=== PATIENT | male | born 1955 | race African-American/Black ===

== ENCOUNTER 2016-11-22 01:21 | Emergency (ER) | payer SELFPAY ==
[2016-11-22 01:49] VITALS: BP 136/82; PULSE 99; TEMP 98; BMI 40.8
--- NOTE | 2016-11-22 02:46 | PDOC ---
History of Present Illness - General Chief Complaint: Shortness of Breath Stated Complaint: DIFFICULTY BREATHING Time Seen by Provider: 11/22/16 01:41 - History of Present Illness Initial Comments: 11/22/16 02:10 CHIEF COMPLAINT: sob HISTORY OF PRESENT ILLNESS: 61 yo M with no known PMH presents to ED with intermittent episodes of shortness of breath and "raspiness in the throat" x 1 year. Patient reports that his episodes of discomfort begin with "raspiness in the neck/throat" and then progress to a feeling of choking sensation and difficulty breathing. Patient states "I don't know if I have an allergy to something and then my throat swells up or something." Patient denies fever, chills, nausea, vomiting, diarrhea. Patient reports that at this time he has no symptoms and that his shortness of breath has resolved. PAST MEDICAL HISTORY: Denies past medical history (no PCP) FAMILY HISTORY: Denies SOCIAL HISTORY: Denies tobacco, alcohol, illicit drug use. SURGICAL HISTORY: Denies ALLERGIES: No known drug allergies REVIEW OF SYSTEMS General/Constitutional: Denies fever or chills. Denies weakness, weight change. HEENT: Denies change in vision. Denies ear pain or discharge. Denies sore throat. Cardiovascular: Denies chest pain or shortness of breath. Respiratory: Denies cough, wheezing, or hemoptysis. Gastrointestinal: Denies nausea, vomiting, diarrhea or constipation. Denies rectal bleeding. Genitourinary: Denies dysuria, frequency, or change in urination. Musculoskeletal: Denies joint or muscle swelling or pain. Denies neck or back pain. Skin and breasts: Denies rash or easy bruising. Neurologic: Denies headache, vertigo, loss of consciousness, or loss of sensation. PHYSICAL EXAM General Appearance: Well-appearing, appropriately dressed. No apparent distress. HEENT: EOMI, PERRLA, normal ENT inspection, normal voice, TMs normal, pharynx normal. No conjunctival pallor. No photophobia, scleral icterus. Neck: Supple. Trachea midline. No tenderness, rigidity, carotid bruit, stridor , lymphadenopathy, or thyromegaly. Respiratory/Chest: Lungs CTAB. No shortness of breath, chest tenderness, respiratory distress, accessory muscle use. No crackles, rales, rhonchi, stridor , wheezing, dullness Cardiovascular: RRR. S1, S2. No JVD, murmur, bradycardia, tachycardia. Vascular Pulses: Dorsalis-Pedis (R): 2+, Dorsalis-Pedis (L): 2+ Gastrointestinal/Abdominal: Normal bowel sounds. Abdomen soft, non-distended. No tenderness or rebound tenderness. No organomegaly, pulsatile mass, guarding , hernia, hepatomegaly, splenomegaly. Lymphatic: No adenopathy, tenderness. Musculoskeletal/Extremities: Normal inspection. FROM of all extremities, normal capillary refill. Pelvis Stable. No CVA tenderness. No tenderness to extremities, pedal edema, swelling, erythema or deformity. Integumentary: Appropriate color, dry, warm. No cyanosis, erythema, jaundice or rash Neurologic: warehouse director II-XII intact. Fully oriented, alert. Appropriate mood/affect. Motor strength 5/5. No appreciable EOM palsy, facial droop or sensory deficit. 11/22/16 03:42 11/22/16 03:43 Past History - Past Medical History Allergies/Adverse Reactions: Allergies Allergy/AdvReac Type Severity Reaction Status Date / Time No Known Allergies Allergy Verified 11/22/16 01:47 Home Medications: Ambulatory Orders Epinephrine [Epipen 2-Manoj] 0.3 mg IJ ASDIR #1 kit 11/22/16 - Psycho/Social/Smoking Cessation Hx Suicidal Ideation: No Smoking Status: No Smoking History: Never smoked Have you smoked in the past 12 months: No Number of Cigarettes Smoked Daily: 0 Information on smoking cessation initiated: No Hx Alcohol Use: No Drug/Substance Use Hx: No *Physical Exam - Vital Signs Last Vital Signs Temp Pulse Resp BP Pulse Ox 98.0 F 99 H 16 136/82 96 11/22/16 01:47 11/22/16 01:47 11/22/16 01:47 11/22/16 01:47 11/22/16 01:47 ED Treatment Course - RADIOLOGY Radiology Studies Ordered: Category Date Time Status SOFT TISSUE NECK CT W/O CONTR [CT] Stat CT Scan 11/22/16 02:08 Ordered CHEST PA & LAT [RAD] Stat Radiology 11/22/16 02:07 Ordered Medical Decision Making - Medical Decision Making 11/22/16 03:45 61 yo M with no known PMH presents to ED with intermittent episodes of shortness of breath and "raspiness in the throat" x 1 year. On arrival VS remarkable for HR 99, however on manual exam, patient HR was 69. -soft tissue neck -CXR Imaging negative. Patient continues to be asymptomatic at this time. Advised patient to f/u with ENT for endoscopy. Advised patient of signs and symptoms for return to ER; patient verbalized understanding and agrees to plan. 11/22/16 03:47 *DC/Admit/Observation/Transfer Diagnosis at time of Disposition: Throat tightness - Discharge Dispostion Disposition: HOME Condition at time of disposition: Stable Admit: No - Prescriptions Prescriptions: Epinephrine [Epipen 2-Manoj] 0.3 mg IJ ASDIR #1 kit - Referrals Referrals: Lalo Lorenz MD [Staff Physician] - Kathy Camilo MD [Staff Physician] - - Patient Instructions Printed Discharge Instructions: DI for Shortness of Breath Additional Instructions: As discussed, you must follow up with ENT this week for a possible scope of your throat for further evaluation. You may also follow up with an air brake adjuster for further evaluation of possible allergy triggers. If you experience swelling of your throat, tongue, mouth, or lips that cause you difficulty breathing, please use the Epipen and return to the ER.
== END 2016-11-22 04:00 | disposition home or self-care (01) ==
LOC: JER 01:21
DX: J39.2 Other diseases of pharynx (principal)
CPT/HCPCS: 70490-TC; 71020-TC; 99281-25

== ENCOUNTER 2018-04-04 12:31 | Inpatient (IN) | payer OTHER ==
--- NOTE | 2018-04-04 13:41 | PDOC ---
Attending Attestation - HPI HPI: 04/04/18 14:33 The patient is a 63 year old male, with no significant past medical history, who presents to the emergency department with worsening nonradiating right sided chest pain. The patient reports that he always has chest pain at baseline but his chest pain worsened 3 hours prior to presentation, prompting him to come to the emergency department for evaluation. The patient states that his chest pain is worse with inspiration and with all movements. He denies any fever , chills, shortness of breath, palpitations, nausea, vomiting or any numbness/ tingling/weakness. Allergies: None reported. Past Surgical History: None reported. Social History: Non-smoker. Denies alcohol or drug use. - Physicial Exam PE: 04/04/18 14:34 GENERAL: The patient is in no acute distress. HEAD: Normal with no signs of trauma. EYES: PERRLA, EOMI, sclera anicteric, conjunctiva clear. ENT: Ears normal, nares patent, oropharynx clear without exudates. Moist mucous membranes. NECK: Normal range of motion, supple without lymphadenopathy, JVD, or masses. LUNGS: Breath sounds equal, clear to auscultation bilaterally. No wheezes, no crackles. HEART: Regular rate and rhythm, normal S1 and S2 without murmur, rub or gallop. CHEST: No reproducible chest pain to palpation. ABDOMEN: Soft, nontender, normoactive bowel sounds. No guarding, no rebound. No masses palpable. EXTREMITIES: Normal range of motion, no edema. No clubbing or cyanosis. No erythema, or tenderness. NEUROLOGICAL: Cranial nerves II through XII grossly intact. Normal speech. No focal neurological deficits. MUSCULOSKELETAL: Back nontender to palpation. No CVA tenderness. SKIN: Warm, dry, normal turgor, no rashes or lesions noted. Documentation prepared by Tiffany Molina, acting as medical receptionist for Autumn Keyes MD. <Tiffany Wallace - Last Filed: 04/04/18 14:34> - Resident Resident Name: Cecilio Cain - ED Attending Attestation I have performed the following: I have examined & evaluated the patient, The case was reviewed & discussed with the resident, I agree w/resident's findings & plan, Exceptions are as noted - Medical Decision Making 04/04/18 13:41 EKG - Twelve-lead EKG was performed and reviewed by me. There is normal sinus rhythm with a normal rate of 70 bpm. The axis is normal. The intervals are normal. There are no ST or T wave abnormalities. Impression: Normal twelve-lead EKG 04/04/18 15:01 Mr Nguyen has chronic right chest pain He presents today because his pain worsened Not associated with shortness of breath Pt has not taken any medications for this pain NO cough No fevers or chills No rash Pain not worsened with palpation CXR - No effusions, cardiomediastinal silhouette nml 04/05/18 10:34 Laboratory Tests 04/04/18 04/04/18 04/04/18 14:30 14:30 14:30 WBC 10.4 H Hgb 14.2 Hct 40.9 Plt Count 273 D INR 1.08 BUN 10 Creatinine 1.1 Creatine Kinase 225 Creatine Kinase Index 3.3 CK-MB (CK-2) 7.5 H Troponin I 0.59 H Pt currently chest pain free Aspirin ordered Call to cards Recommends standard NSTEMI treatment Trop repeated 04/05/18 10:38 Laboratory Tests 04/04/18 15:48 Creatine Kinase 238 Troponin I 1.03 H* Reviewed again with Cards Recommends heparin and admission Case reviewed with hospitalist Recommends also doing CTA (r/o PE) Clinical impression: NSTEMI, initial presentation <Autumn Keyes - Last Filed: 04/05/18 10:39>
[2018-04-04] MEDS ORDERED: ASPIRIN 81 MG CHEWABLE TABLETS PO ONE (13:46)
[2018-04-04] MEDS ORDERED: ASPIRIN 81 MG CHEWABLE TABLETS ONE (14:39)
[2018-04-04 14:53] LABS: INR 1.08 (0.83-1.09); PROTHROMBIN TIME (PATIENT) 12.7 SEC (9.7-13.0)
[2018-04-04 15:12] LABS: BASO % 0.3 % (0-2.0); HEMATOCRIT 40.9 % (35.4-49); HEMOGLOBIN 14.2 GM/dL (11.7-16.9); LYMPH % 18.9 % (8-40); MCH 28.9 pg (25.7-33.7); MCHC 34.7 g/dl (32.0-35.9); MEAN CELL VOLUME 83.3 fl (80-96); MONO % 4.9 % (3.8-10.2); NEUT % 74.9 % (42.8-82.8); PLATELET COUNT 273 K/MM3 (134-434); RBC 4.91 M/mm3 (4.00-5.60); RDW 13.1 % (11.9-15.9); WHITE BLOOD COUNT 10.4 K/mm3 (4.0-10.0)
[2018-04-04 15:17] LABS: ALBUMIN 3.6 g/dl (3.4-5.0); ALK PHOS 93 U/L (45-117); ANION GAP 6 MMOL/L (8-16); BILIRUBIN,TOTAL 0.3 mg/dL (0.2-1); BLOOD UREA NITROGEN 10 mg/dL (7-18); CALCIUM 8.9 mg/dL (8.5-10.1); CHLORIDE 103 mmol/L (98-107); CO2 29 mmol/L (21-32); CREATININE 1.1 mg/dL (0.55-1.3); GLUCOSE,RANDOM 110 mg/dL (74-106); MAGNESIUM 2.1 mg/dL (1.8-2.4); POTASSIUM 4.1 mmol/L (3.5-5.1); SGOT/AST 19 U/L (15-37); SGPT/ALT 23 U/L (13-61); SODIUM 138 mmol/L (136-145); TOT PROT 7.3 g/dl (6.4-8.2)
--- NOTE | 2018-04-04 15:21 | PDOC ---
History of Present Illness - General Chief Complaint: Chest Pain Stated Complaint: Chest Pain Time Seen by Provider: 04/04/18 13:14 History Source: Patient Exam Limitations: No Limitations - History of Present Illness Initial Comments: 04/04/18 15:16 Patient is a 63M with history of distant tobacco abuse here today complaining of chest pain. He states that he has chest pain in the right side of his chest all the time but it got worse 3 hours prior to arrival. Patient states his chest pain gets worse with inspiration, moving his right arm and palpation. Denies fevers, chills, nausea, vomiting. Denies cough and shortness of breath. Denies leg swelling, recent travel, prior blood clots. Has no PCP. Has seen safety engineer pressure vessels in the past and told that she was fine. Past History - Past Medical History Allergies/Adverse Reactions: Allergies Allergy/AdvReac Type Severity Reaction Status Date / Time No Known Allergies Allergy Verified 04/04/18 12:38 Home Medications: Ambulatory Orders Epinephrine [Epipen 2-Manoj] 0.3 mg IJ ASDIR #1 kit 11/22/16 COPD: No CHF: No - Suicide/Smoking/Psychosocial Hx Smoking Status: No Smoking History: Unknown if ever smoked Have you smoked in the past 12 months: No Number of Cigarettes Smoked Daily: 0 Information on smoking cessation initiated: No Hx Alcohol Use: No Drug/Substance Use Hx: No Review of Systems - Review of Systems Comments:: 04/04/18 15:18 GENERAL/CONSTITUTIONAL: No fever or chills. No weakness. HEAD, EYES, EARS, NOSE AND THROAT: No change in vision. No sore throat. CARDIOVASCULAR: +chest pain no shortness of breath RESPIRATORY: No cough, wheezing, or hemoptysis. GASTROINTESTINAL: No nausea, vomiting, diarrhea or constipation. GENITOURINARY: No dysuria, frequency, or change in urination. MUSCULOSKELETAL: No joint or muscle swelling or pain. No neck or back pain. SKIN: No rash NEUROLOGIC: No headache, vertigo, loss of consciousness, or change in strength/ sensation. ENDOCRINE: No increased thirst. No abnormal weight change HEMATOLOGIC/LYMPHATIC: No anemia, easy bleeding, or history of blood clots. ALLERGIC/IMMUNOLOGIC: No hives or skin allergy. *Physical Exam - Vital Signs Last Vital Signs Temp Pulse Resp BP Pulse Ox 99.4 F 77 18 155/81 100 04/04/18 12:31 04/04/18 12:31 04/04/18 12:31 04/04/18 12:31 04/04/18 12:31 - Physical Exam Comments: 04/04/18 15:18 GENERAL: Awake, alert, and fully oriented, in no acute distress HEAD: No signs of trauma, normocephalic, atraumatic EYES: PERRLA, EOMI, sclera anicteric, conjunctiva clear ENT: Auricles normal inspection, hearing grossly normal, nares patent, oropharynx clear without exudates. Moist mucosa NECK: Normal ROM, supple, no lymphadenopathy, JVD, or masses LUNGS: No distress, speaks full sentences, clear to auscultation bilaterally HEART: Regular rate and rhythm, normal S1 and S2, no murmurs, rubs or gallops, peripheral pulses normal and equal bilaterally. Reproduced pain with palpation ABDOMEN: Soft, nontender, normoactive bowel sounds. No guarding, no rebound. No masses EXTREMITIES: Normal inspection, Normal range of motion, no edema. No clubbing or cyanosis. NEUROLOGICAL: Cranial nerves II through XII grossly intact. Normal speech, normal gait, no focal sensorimotor deficits SKIN: Warm, Dry, normal turgor, no rashes or lesions noted. Moderate Sedation - Procedure Monitoring Vital Signs: Procedure Monitoring Vital Signs Temperature 99.4 F 04/04/18 12:31 Pulse Rate 77 04/04/18 12:31 Respiratory Rate 18 04/04/18 12:31 Blood Pressure 155/81 04/04/18 12:31 O2 Sat by Pulse Oximetry (%) 100 04/04/18 12:31 ED Treatment Course - LABORATORY CBC & Chemistry Diagram: 04/04/18 14:30 04/04/18 14:30 - ADDITIONAL ORDERS Additional order review: Laboratory Results 04/04/18 14:30 PT with INR 12.70 INR 1.08 - RADIOLOGY Radiology Studies Ordered: Category Date Time Status CHEST PA & LAT [RAD] Stat Radiology 04/04/18 13:46 Taken - Medications Given in the ED: ED Medications Discontinued Medications Generic Name Dose Route Start Last Admin Trade Name Freq PRN Reason Stop Dose Admin Aspirin 162 mg 04/04/18 13:46 04/04/18 14:46 Asa - PO 04/04/18 13:47 162 mg ONCE ONE Administration Medical Decision Making - Medical Decision Making 04/04/18 15:18 Patient is 63M with history of tobacco use here today with chest pain. Vitals normal and stable. Chest pain story very atypical. DDx includes, but is not limited to: msk pain, acs, arrhythmia. Do not suspect pe given history and exam. Give aspirin. EKG shows normal sinus rhythm with rate of 70. No st elevations/depressions. Normal axis. Normal intervals. No significant t wave abnormalities. Trop positive to 0.59. CXR clear, other labs unremarkable. Will admit for ACS. 04/04/18 15:25 Patient re-evaluated after increased troponin found. Pain increasing again, will give nitro SL and repeat EKG. PE again re-considered, but still do not believe likely given patient is active at baseline, no leg swelling, no tachycardia, no hypoxia. 04/04/18 15:37 Repeat EKG shows normal sinus rhythm with rate of 85. R wave progression poorer now in V2, V3. Flattened t waves in V2-V6. No st elevations/depressions. Cardiology paged. 04/04/18 17:59 Initial cardiology consult with Dr Villatoro. Waiting to heparinize until second trop done. Second trop positive to 1.03 1 hour 18 minutes after initial troponin. Cardiology paged again, Dr Perez responding. Requesting third EKG. Will dispo transfer for cath vs tele admission per cardiology request. Holding heparin at this time. 04/04/18 18:43 Third EKG shows normal sinus rhythm with normal appearing t waves. No st elevations/depressions. Case discussed further with Dr Perez. POCUS echo done. No effusion noted. No obvious wall motion abnormality noted. Normal sized RV. LVH. Will do CTA chest to rule out PE. Case discussed with Dr Freeman, still pending final transfer vs admit call per cardiology. Patient reassessed, pain is still there, pain improved. CTA ordered. Morphine ordered. 04/04/18 19:[address] Mendez. *DC/Admit/Observation/Transfer Diagnosis at time of Disposition: Chest pain - Discharge Dispostion Condition at time of disposition: Stable Decision to Admit order: Yes - Referrals - Patient Instructions - Post Discharge Activity
[2018-04-04] MEDS ORDERED: NITROGLYCERIN SUBLINGUAL 1/150 0.4 MG TAB SL ONE (15:39)
[2018-04-04] MEDS ORDERED: NITROGLYCERIN SUBLINGUAL 1/150 0.4 MG TAB ONE (15:45)
--- NOTE | 2018-04-04 16:56 | EKG ---
Test Reason : Blood Pressure : / mmHG Vent. Rate : 070 BPM Atrial Rate : 070 BPM P-R Int : 194 ms QRS Dur : 086 ms QT Int : 374 ms P-R-T Axes : 056 020 050 degrees QTc Int : 403 ms NORMAL SINUS RHYTHM WITH SINUS ARRHYTHMIA NORMAL ECG WHEN COMPARED WITH ECG OF 18-FEB-2017 18:42, NON-SPECIFIC CHANGE IN ST SEGMENT IN LATERAL LEADS Confirmed by PATRICK READ, MAGO ([id number]) on 04/04/2018 4:56:35 PM Referred By: Confirmed By:MAGO NGUYEN MD
[2018-04-04] MEDS ORDERED: morphine CARPU-JECT 4 MG/1 ML DISP.SYRIN IVPUSH ONE (18:42)
[2018-04-04] MEDS ORDERED: morphine SULFATE 4 MG/ML VIAL ONE (19:04)
[2018-04-04] MEDS ORDERED: HEPARIN INFUSION - 25,000 UNITS/500 ML INFUS.BAG IVPB ONE (21:08)
--- NOTE | 2018-04-04 21:36 | PDOC ---
*Physical Exam - Vital Signs Last Vital Signs Temp Pulse Resp BP Pulse Ox 99.4 F 77 20 138/66 98 04/04/18 12:31 04/04/18 16:57 04/04/18 16:57 04/04/18 16:57 04/04/18 16:57 ED Treatment Course - LABORATORY CBC & Chemistry Diagram: 04/04/18 14:30 04/04/18 14:30 - ADDITIONAL ORDERS Additional order review: Laboratory Results 04/04/18 04/04/18 04/04/18 15:48 15:48 14:30 PT with INR INR Sodium 138 Potassium 4.1 Chloride 103 Carbon Dioxide 29 Anion Gap 6 L BUN 10 Creatinine 1.1 Creat Clearance w eGFR > 60 Random Glucose 110 H Calcium 8.9 Magnesium 2.1 Total Bilirubin 0.3 AST 19 ALT 23 Alkaline Phosphatase 93 Creatine Kinase 238 225 Creatine Kinase Index Cancelled Cancelled 3.3 CK-MB (CK-2) Cancelled Cancelled 7.5 H Troponin I 1.03 H* 0.59 H Total Protein 7.3 Albumin 3.6 04/04/18 14:30 PT with INR 12.70 INR 1.08 Sodium Potassium Chloride Carbon Dioxide Anion Gap BUN Creatinine Creat Clearance w eGFR Random Glucose Calcium Magnesium Total Bilirubin AST ALT Alkaline Phosphatase Creatine Kinase Creatine Kinase Index CK-MB (CK-2) Troponin I Total Protein Albumin 04/04/18 14:30 RBC 4.91 MCV 83.3 MCHC 34.7 RDW 13.1 MPV 8.0 Neutrophils % 74.9 Lymphocytes % 18.9 Monocytes % 4.9 Eosinophils % 1.0 Basophils % 0.3 - Medications Given in the ED: ED Medications Discontinued Medications Generic Name Dose Route Start Last Admin Trade Name Freq PRN Reason Stop Dose Admin Aspirin 162 mg 04/04/18 13:46 04/04/18 14:46 Asa - PO 04/04/18 13:47 162 mg ONCE ONE Administration Morphine Sulfate 4 mg 04/04/18 18:42 04/04/18 19:11 Morphine Injection - IVPUSH 04/04/18 18:43 4 mg ONCE ONE Administration Nitroglycerin 0.4 mg 04/04/18 15:39 04/04/18 15:48 Nitrostat - SL 04/04/18 15:40 0.4 mg ONCE ONE Administration Medical Decision Making - Medical Decision Making Patient signed out from Dr. Cain. 63yo M with H of obesity presenting with chest pain. Patient with elevated Tpn. Reports lessened chest pain after receiving morphine, now rated 3/10. Admitted to hospitalist group. CTA negative for PE. Phone call at 8:20pm: Spoke with Dr. Perez, cardiology, who recommended Heparin drip, repeat Tpn, and order for ECHO to be performed in the morning. Repeat Tpn elevated at 2.42 (up from 1.03 at 3:48pm and 0.59 at 2:30pm). Repeat EKG ordered. EKG @ 22:12: rate 80, QTc 396, NSR, inverted t waves in V3-V5 Patient reports 1/[address] Perez updated at 10pm. 04/04/18 23:54 *DC/Admit/Observation/Transfer Diagnosis at time of Disposition: Chest pain - Discharge Dispostion Condition at time of disposition: Stable - Referrals - Patient Instructions - Post Discharge Activity
[2018-04-04] MEDS: HEPARIN INFUSION - 25,000 UNITS/500 ML INFUS.BAG IVPB SCH (21:47)
[2018-04-05] MEDS ORDERED: HEPARIN NA (PORCINE) 5,000 UNITS/ML 1ML VIAL ONE (06:02)
[2018-04-05] MEDS ORDERED: HEPARIN NA (PORCINE) 5,000 UNITS/ML 1ML VIAL IVPUSH PRN ×2 (06:02)
[2018-04-05] MEDS ORDERED: HEPARIN INFUSION - 25,000 UNITS/500 ML INFUS.BAG IVPB SCH (06:15)
--- NOTE | 2018-04-05 08:41 | HP ---
CHIEF COMPLAINT: R sided chest pain PCP: none HISTORY OF PRESENT ILLNESS: 63 y/o with no significant PMH who presents to the ED c/o new onset R sided chest pain. As per pt, at noon yesterday (04/04), he developed sudden onset R sided chest pain. Pain was an 8/10 initially, sharp and a/w deep breathing. With no alleviating fx. Did not try any therapies at home such as asa. An hour later, pt's chest pain became unbearable, thus he came to the ED for further evaluation. During this time, he had one episode of NBNB emesis and diaphoresis. States that he does not follow with a materials manager and has never had a stress test or ECHO done before. No recent long travel. Denies GUAJARDO, fever, chills, or changes in urinary or bowel function. Family hx + for mother with weak heart. Passed in her 70's. ER course was notable for: (1) asa 162 x1 (2) hep gtt (3) morphine 4mg, NG 0.4mg SL Recent Travel: denies PAST MEDICAL HISTORY: none PAST SURGICAL HISTORY: none Social History: currently does not work; used to work as a mental health worker Smoking: quit 23 yrs ago; had smoked from ages [age] 1ppd Alcohol: denies Drugs: denies Family History: mother with weak heart. Passed in her 70's. no other fam hx . Allergies No Known Allergies Allergy (Verified 04/04/18 12:38) HOME MEDICATIONS: Home Medications Medication Instructions Recorded Epinephrine [Epipen 2-Manoj] 0.3 mg IJ ASDIR #1 kit 11/22/16 REVIEW OF SYSTEMS CONSTITUTIONAL: Absent: fever, chills, diaphoresis, generalized weakness, malaise, loss of appetite, weight change HEENT: Absent: rhinorrhea, nasal congestion, throat pain, throat swelling, difficulty swallowing, mouth swelling, ear pain, eye pain, visual changes CARDIOVASCULAR: +chest pain, diaphoresis Absent: chest pain, syncope, palpitations, irregular heart rate, lightheadedness , peripheral edema RESPIRATORY: Absent: cough, shortness of breath, dyspnea with exertion, orthopnea, wheezing, stridor, hemoptysis GASTROINTESTINAL: +nausea Absent: abdominal pain, abdominal distension, nausea, vomiting, diarrhea, constipation, melena, hematochezia GENITOURINARY: Absent: dysuria, frequency, urgency, hesitancy, hematuria, flank pain, genital pain MUSCULOSKELETAL: Absent: myalgia, arthralgia, joint swelling, back pain, neck pain SKIN: Absent: rash, itching, pallor HEMATOLOGIC/IMMUNOLOGIC: Absent: easy bleeding, easy bruising, lymphadenopathy, frequent infections ENDOCRINE: Absent: unexplained weight gain, unexplained weight loss, heat intolerance, cold intolerance NEUROLOGIC: Absent: headache, focal weakness or paresthesias, dizziness, unsteady gait, seizure, mental status changes, bladder or bowel incontinence PSYCHIATRIC: Absent: anxiety, depression, suicidal or homicidal ideation, hallucinations. PHYSICAL EXAMINATION Vital Signs 04/04/18 04/05/18 04/05/18 23:00 05:17 07:00 Temperature 98.1 F Pulse Rate Pulse Rate [ 91 H 63 Apical] Respiratory 18 17 Rate Blood Pressure Blood Pressure 136/81 149/91 136/72 [Left Arm] O2 Sat by Pulse 100 95 Oximetry (%) GENERAL: Pleasant. resting in bed. awake, alert, and fully oriented, in no acute distress. HEAD: Normal with no signs of trauma. EYES: Pupils equal, round and reactive to light, extraocular movements intact, sclera anicteric, conjunctiva clear. EARS, NOSE, THROAT: Ears normal, nares patent, oropharynx clear without exudates. Moist mucous membranes. NECK: Normal range of motion, supple CHEST: without reproducible chest pain LUNGS: Breath sounds equal, clear to auscultation bilaterally. No wheezes, and no crackles. No accessory muscle use. HEART: Regular rate and rhythm, normal S1 and S2 without murmur, rub or gallop. ABDOMEN: Soft, obese, nontender, not distended, normoactive bowel sounds LOWER EXTREMITIES: 2+ pt pulses, warm, well-perfused. No calf tenderness. No peripheral edema. NEUROLOGICAL: Cranial nerves II-XII intact. PSYCHIATRIC: Cooperative. SKIN: Warm, dry Laboratory Results - last 24 hr 04/04/18 04/04/18 04/04/18 14:30 14:30 14:30 WBC 10.4 H RBC 4.91 Hgb 14.2 Hct 40.9 MCV 83.3 MCH 28.9 MCHC 34.7 RDW 13.1 Plt Count 273 D MPV 8.0 Absolute Neuts (auto) 7.8 Neutrophils % 74.9 Lymphocytes % 18.9 Monocytes % 4.9 Eosinophils % 1.0 Basophils % 0.3 Nucleated RBC % 0 PT with INR 12.70 INR 1.08 PTT (Actin FS) Sodium 138 Potassium 4.1 Chloride 103 Carbon Dioxide 29 Anion Gap 6 L BUN 10 Creatinine 1.1 Creat Clearance w eGFR > 60 Random Glucose 110 H Calcium 8.9 Magnesium 2.1 Total Bilirubin 0.3 AST 19 ALT 23 Alkaline Phosphatase 93 Creatine Kinase 225 Creatine Kinase Index 3.3 CK-MB (CK-2) 7.5 H Troponin I 0.59 H Total Protein 7.3 Albumin 3.6 Trop trend 04/04/18 04/04/18 04/04/18 14:30 15:48 20:30 Troponin I 0.59 H 1.03 H* 2.42 H* 04/04/18 04/05/18 14:30 08:40 Troponin I 0.59 H 2.88 H* EKG: initially NSR, later with flattened T waves V2, V6, later w/ inverted t waves v3-v5 on sequential EKGs ASSESSMENT/PLAN: 63 y/o with no significant PMH who presents to the ED c/o new onset R sided chest pain. #Chest pain, NSTEMI -with developing inverted T waves after flattening, new changes. YESSICA score 2-3 -s/p asa 162mg in ED. continue 81mg qd -started on high dose statin: lipitor 80mg qd -d/w cardio; will load plavix 300mg x1, 75mg qd starting today. do not need to start BB now -for cath this . pt talking to family -hep gtt; follow PTT -f/u ECHO -NG, morphine if chest pain recurs -keep Mg>2, K>4 -cont to trend trops. 0.59>1.03> 2.42>2.88 -tele monitoring, serial EKGs #F/E/N no IVF indicated at this time continue to follow lytes; especially K, Mg cholesterol/fat controlled diet #PPX hep gtt #Dispo tele monitoring for cath this weekend as per cardio Visit type - Emergency Visit Emergency Visit: Yes ED Registration Date: 04/04/18 Care time: The patient presented to the Emergency Department on the above date and was hospitalized for further evaluation of their emergent condition. - New Patient This patient is new to me today: Yes Date on this admission: 04/05/18 - Critical Care Critical Care patient: No
[2018-04-05 09:04] LABS: BASO % 0.3 % (0-2.0); HEMATOCRIT 41.9 % (35.4-49); HEMOGLOBIN 14.2 GM/dL (11.7-16.9); LYMPH % 25.3 % (8-40); MCH 28.4 pg (25.7-33.7); MEAN CELL VOLUME 83.6 fl (80-96); MEAN PLT VOLUME 7.7 fl (7.5-11.1); MONO % 6.9 % (3.8-10.2); NEUT % 65.5 % (42.8-82.8); PLATELET COUNT 277 K/MM3 (134-434); RBC 5.01 M/mm3 (4.00-5.60); RDW 13.2 % (11.9-15.9); WHITE BLOOD COUNT 9.5 K/mm3 (4.0-10.0)
[2018-04-05 09:15] LABS: INR 1.08 (0.83-1.09); PROTHROMBIN TIME (PATIENT) 12.7 SEC (9.7-13.0)
[2018-04-05 09:18] LABS: ACTIVATED PTT 58.7 SECONDS (25.2-36.5)
[2018-04-05 09:43] LABS: ANION GAP 9 MMOL/L (8-16); BLOOD UREA NITROGEN 11 mg/dL (7-18); CALCIUM 8.9 mg/dL (8.5-10.1); CHLORIDE 103 mmol/L (98-107); CHOLESTEROL 261 mg/dL (50-200); CO2 27 mmol/L (21-32); CREATININE 1.1 mg/dL (0.55-1.3); GLUCOSE,RANDOM 117 mg/dL (74-106); HDL CHOLESTEROL 36 mg/dL (40-60); POTASSIUM 3.6 mmol/L (3.5-5.1); SODIUM 139 mmol/L (136-145); TRIGLYCERIDES 212 mg/dL (0-150)
[2018-04-05] MEDS ORDERED: ATORVASTATIN CA 80 MG TABLET (FP) ONE (10:14)
[2018-04-05] MEDS ORDERED: CLOPIDOGREL BISULFATE 300 MG TABLET ONE (10:14)
[2018-04-05] MEDS ORDERED: CLOPIDOGREL BISULFATE 300 MG TABLET PO ONE (10:15)
[2018-04-05] MEDS: ATORVASTATIN CA 80 MG TABLET (FP) PO SCH (10:16)
--- NOTE | 2018-04-05 11:17 | ECHO ---
Name: LUCA ZHONG Exam:Adult Echocardiogram Study Date: 04/05/2018 10:29 AM Age: 63 yrs Reason For Study: NSTEMI Height: 73 in Weight: 400 lb BSA: 2.9 m2 MMode/2D Measurements & Calculations IVSd: 1.0 cm Ao root diam: 2.9 cm LVIDd: 4.5 cm LA dimension: 3.4 cm LVIDs: 2.8 cm LVPWd: 0.93 cm EDV(Teich): 91.3 ml TAPSE: 2.4 cm ESV(Teich): 29.3 ml Doppler Measurements & Calculations MV E max tevin: 50.8 cm/sec MR max tevin: 331.2 cm/sec MV A max tevin: 62.7 cm/sec MR max P.9 mmHg MV E/A: 0.81 MV dec time: 0.14 sec TR max tevin: 218.4 cm/sec Med Peak E' Tevin: 4.6 cm/sec TR max P.2 mmHg Med E/e': 11.1 Lat Peak E' Tevin: 6.1 cm/sec Lat E/e': 8.3 Left Ventricle Left ventricular systolic function is normal. Ejection Fraction = 55-60%. The transmitral spectral Do ppler flow pattern is suggestive of impaired LV relaxation. Right Ventricle The right ventricle is normal in size and function. Atria Normal left and right atrial size and function. Mitral Valve The mitral valve is normal in structure and function. There is no mitral valve stenosis. There is mil d mitral regurgitation. Tricuspid Valve The tricuspid valve is normal in structure and function. There is mild tricuspid regurgitation. Right ventricular systolic pressure is normal. Aortic Valve The aortic valve opens well. No hemodynamically significant valvular aortic stenosis. No aortic regur gitation is present. Pulmonic Valve The pulmonic valve is not well visualized. There is no pulmonic valvular stenosis. Trace pulmonic sagrario vular regurgitation. Great Vessels The aortic root is normal size. Pericardium/Pleura There is no pericardial effusion. Interpretation Summary Left ventricular systolic function is normal. Ejection Fraction = 55-60%. The transmitral spectral Doppler flow pattern is suggestive of impaired LV relaxation. The right ventricle is normal in size and function. There is mild mitral regurgitation. There is mild tricuspid regurgitation. Right ventricular systolic pressure is normal. No hemodynamically significant valvular aortic stenosis. There is no pericardial effusion. MD Patterson *[place] 04/05/2018 11:17 AM
--- NOTE | 2018-04-05 11:17 | CON.CARD ---
Cardiology Consult (text) - Consultation Consultation Note: cc: cp hpi: 63 m no sig pmhx here with cp. Pt with chronic right sided pressure pain worse with exertion. Yesterday this pain was much worse so came to ER. No sob palps dizzy loc pnd orthopnea le edema. Found to have nstemi. No cp currently, feeling well. pmh: per hpi psh: no surgery social: ex tob fam: no premature cad, scd ros: per hpi; no nvd fever cough patel vision changes hematuria dysuria gib meds: none taken pe: Vital Signs Period Temp Pulse Resp BP Sys/Mares Pulse Ox Last 24 Hr 98.1 F-99.4 F 63-91 16-20 129-155/66-91 95-100 nad no jvd rrr s1s2 no mrg cta bl nl eff aaox3 no le e/c/c abd nt nd pos bs no jaundice diaphoresis pos dp pt no carotid bruits Laboratory Last Values WBC 9.5 K/mm3 (4.0-10.0) 04/05/18 08:40 RBC 5.01 M/mm3 (4.00-5.60) 04/05/18 08:40 Hgb 14.2 GM/dL (11.7-16.9) 04/05/18 08:40 Hct 41.9 % (35.4-49) 04/05/18 08:40 MCV 83.6 fl (80-96) 04/05/18 08:40 MCH 28.4 pg (25.7-33.7) 04/05/18 08:40 MCHC 34.0 g/dl (32.0-35.9) 04/05/18 08:40 RDW 13.2 % (11.9-15.9) 04/05/18 08:40 Plt Count 277 K/MM3 (134-434) 04/05/18 08:40 MPV 7.7 fl (7.5-11.1) 04/05/18 08:40 Absolute Neuts (auto) 6.2 K/mm3 (1.5-8.0) 04/05/18 08:40 Neutrophils % 65.5 % (42.8-82.8) 04/05/18 08:40 Lymphocytes % 25.3 % (8-40) D 04/05/18 08:40 Monocytes % 6.9 % (3.8-10.2) 04/05/18 08:40 Eosinophils % 2.0 % (0-4.5) D 04/05/18 08:40 Basophils % 0.3 % (0-2.0) 04/05/18 08:40 Nucleated RBC % 0 % (0-0) 04/05/18 08:40 PT with INR 12.70 SEC (9.7-13.0) 04/05/18 08:40 INR 1.08 (0.83-1.09) 04/05/18 08:40 PTT (Actin FS) 58.7 SECONDS (25.2-36.5) H 04/05/18 08:40 Sodium 139 mmol/L (136-145) 04/05/18 08:40 Potassium 3.6 mmol/L (3.5-5.1) 04/05/18 08:40 Chloride 103 mmol/L (98-107) 04/05/18 08:40 Carbon Dioxide 27 mmol/L (21-32) 04/05/18 08:40 Anion Gap 9 MMOL/L (8-16) 04/05/18 08:40 BUN 11 mg/dL (7-18) 04/05/18 08:40 Creatinine 1.1 mg/dL (0.55-1.3) 04/05/18 08:40 Creat Clearance w eGFR > 60 (>60) 04/05/18 08:40 Random Glucose 117 mg/dL (74-106) H 04/05/18 08:40 Hemoglobin A1c % 6.1 % (4.2-6.3) 04/05/18 08:40 Calcium 8.9 mg/dL (8.5-10.1) 04/05/18 08:40 Magnesium 2.1 mg/dL (1.8-2.4) 04/04/18 14:30 Total Bilirubin 0.3 mg/dL (0.2-1) 04/04/18 14:30 AST 19 U/L (15-37) 04/04/18 14:30 ALT 23 U/L (13-61) 04/04/18 14:30 Alkaline Phosphatase 93 U/L (45-117) 04/04/18 14:30 Creatine Kinase 278 IU/L (26-308) 04/05/18 08:40 Creatine Kinase Index 4.2 % (0.0-5.0) 04/05/18 08:40 CK-MB (CK-2) 11.7 ng/mL (0.5-3.6) H 04/05/18 08:40 Troponin I 2.88 ng/ml (0.00-0.05) H* 04/05/18 08:40 Total Protein 7.3 g/dl (6.4-8.2) 04/04/18 14:30 Albumin 3.6 g/dl (3.4-5.0) 04/04/18 14:30 Triglycerides 212 mg/dL (0-150) H 04/05/18 08:40 Cholesterol 261 mg/dL (50-200) H 04/05/18 08:40 Total LDL Cholesterol 181 mg/dL (5-100) H 04/05/18 08:40 HDL Cholesterol 36 mg/dL (40-60) L 04/05/18 08:40 ecgs reviewed: dynamic nonspec tw changes, normalized on most recent ecg, no st changes. Current ecg unremarkable cta chest: no pe, no chf a/p: 63 m no sig pmhx here with cp. cp, nstemi: -location of sxs on right side chest atypical but cta shows no PE and trops slowly trending upwards c/w NSTEMI -cont hep gtt, asa, plavix, statin -echo ordered -admit to tele -discussed/rec'd cath to be done today but pt declines, says he wants to discuss with [facility] and will consider this weekend or sunday doing cath. Case was d/w interventionalist at [facility] and if cath to be done over weekend then would contact certifed refrigeration operator cath attending, if sunday would be Dr Moscoso.
--- NOTE | 2018-04-05 11:26 | EKG ---
Test Reason : Blood Pressure : / mmHG Vent. Rate : 080 BPM Atrial Rate : 080 BPM P-R Int : 200 ms QRS Dur : 082 ms QT Int : 344 ms P-R-T Axes : 066 038 084 degrees QTc Int : 396 ms NORMAL SINUS RHYTHM NONSPECIFIC T WAVE ABNORMALITY ABNORMAL ECG WHEN COMPARED WITH ECG OF 04-APR-2018 18:05, NONSPECIFIC T WAVE ABNORMALITY, WORSE IN ANTEROLATERAL LEADS Confirmed by PEYMAN READ, VU ([id number]) on 04/05/2018 11:26:09 AM Referred By: Confirmed By:VU MORLEY MD
[2018-04-05 14:18] VITALS: BMI 44.2
--- NOTE | 2018-04-05 14:21 | EKG ---
Test Reason : Blood Pressure : / mmHG Vent. Rate : 067 BPM Atrial Rate : 067 BPM P-R Int : 198 ms QRS Dur : 078 ms QT Int : 420 ms P-R-T Axes : 056 026 108 degrees QTc Int : 443 ms SINUS RHYTHM WITH PREMATURE ATRIAL COMPLEXES IN A PATTERN OF BIGEMINY T WAVE ABNORMALITY, CONSIDER LATERAL ISCHEMIA ABNORMAL ECG WHEN COMPARED WITH ECG OF 04-APR-2018 22:12, PREMATURE ATRIAL COMPLEXES ARE NOW PRESENT INVERTED T WAVES HAVE REPLACED NONSPECIFIC T WAVE ABNORMALITY IN ANTERIOR LEADS Confirmed by PEMYAN READ, VU ([id number]) on 04/05/2018 2:21:36 PM Referred By: Confirmed By:VU MORLEY MD
--- NOTE | 2018-04-05 15:18 | PN ---
Teaching Attending Note Name of Resident: Merna Brambila ATTENDING PHYSICIAN STATEMENT I saw and evaluated the patient. I reviewed the resident's note and discussed the case with the resident. I agree with the resident's findings and plan as documented. SUBJECTIVE: Patient is feeling better, no acute distress. OBJECTIVE: Vital Signs Temperature 98 F 04/05/18 14:09 Pulse Rate 78 04/05/18 14:09 Respiratory Rate 20 04/05/18 14:09 Blood Pressure 151/78 04/05/18 14:09 O2 Sat by Pulse Oximetry (%) 97 04/05/18 14:52 Initial Vital Signs Temp Pulse Resp BP Pulse Ox 99.4 F 77 18 155/81 100 04/04/18 12:31 04/04/18 12:31 04/04/18 12:31 04/04/18 12:31 04/04/18 12:31 GENERAL: Pleasant. resting in bed. awake, alert, and fully oriented, in no acute distress. HEAD: Normal with no signs of trauma. EYES: Pupils equal, round and reactive to light, extraocular movements intact, sclera anicteric, conjunctiva clear. EARS, NOSE, THROAT: Ears normal, oropharynx clear without exudates. Moist mucous membranes. NECK: Normal range of motion, supple CHEST: without reproducible chest pain LUNGS: Breath sounds equal, clear to auscultation bilaterally. No wheezes, and no crackles. No accessory muscle use. HEART: Regular rate and rhythm, normal S1 and S2 without murmur, rub or gallop. ABDOMEN: Soft, obese, nontender, not distended, normoactive bowel sounds EXTREMITIES: 2+ pt pulses, warm, well-perfused. No calf tenderness. No peripheral edema. NEUROLOGICAL: Cranial nerves II-XII intact. PSYCHIATRIC: Cooperative. SKIN: Warm, dry CBCD WBC 9.5 K/mm3 (4.0-10.0) 04/05/18 08:40 RBC 5.01 M/mm3 (4.00-5.60) 04/05/18 08:40 Hgb 14.2 GM/dL (11.7-16.9) 04/05/18 08:40 Hct 41.9 % (35.4-49) 04/05/18 08:40 MCV 83.6 fl (80-96) 04/05/18 08:40 MCHC 34.0 g/dl (32.0-35.9) 04/05/18 08:40 RDW 13.2 % (11.9-15.9) 04/05/18 08:40 Plt Count 277 K/MM3 (134-434) 04/05/18 08:40 MPV 7.7 fl (7.5-11.1) 04/05/18 08:40 CMP Sodium 139 mmol/L (136-145) 04/05/18 08:40 Potassium 3.6 mmol/L (3.5-5.1) 04/05/18 08:40 Chloride 103 mmol/L (98-107) 04/05/18 08:40 Carbon Dioxide 27 mmol/L (21-32) 04/05/18 08:40 Anion Gap 9 MMOL/L (8-16) 04/05/18 08:40 BUN 11 mg/dL (7-18) 04/05/18 08:40 Creatinine 1.1 mg/dL (0.55-1.3) 04/05/18 08:40 Creat Clearance w eGFR > 60 (>60) 04/05/18 08:40 Random Glucose 117 mg/dL (74-106) H 04/05/18 08:40 Calcium 8.9 mg/dL (8.5-10.1) 04/05/18 08:40 Total Bilirubin 0.3 mg/dL (0.2-1) 04/04/18 14:30 AST 19 U/L (15-37) 04/04/18 14:30 ALT 23 U/L (13-61) 04/04/18 14:30 Alkaline Phosphatase 93 U/L (45-117) 04/04/18 14:30 Total Protein 7.3 g/dl (6.4-8.2) 04/04/18 14:30 Albumin 3.6 g/dl (3.4-5.0) 04/04/18 14:30 CARDIAC ENZYMES Creatine Kinase 278 IU/L (26-308) 04/05/18 08:40 Troponin I 2.88 ng/ml (0.00-0.05) H* 04/05/18 08:40 Current Medications Generic Name Dose Route Start Last Admin Trade Name Freq PRN Reason Stop Dose Admin Aspirin 81 mg 04/06/18 10:00 Asa - PO DAILY AURY Atorvastatin Calcium 80 mg 04/05/18 10:00 04/05/18 10:16 Lipitor - PO 80 mg DAILY AURY Administration Clopidogrel Bisulfate 75 mg 04/06/18 10:00 Plavix - PO DAILY AURY Heparin Sodium (Porcine) 1,000 unit 04/05/18 06:02 04/05/18 06:04 Heparin - IVPUSH 1,000 unit PRN PRN Administration Heparin Heparin Sodium (Porcine) 5,000 unit 04/05/18 06:02 Heparin - IVPUSH PRN PRN Heparin Heparin Sodium/Dextrose 25,000 units in 500 mls @ 20 mls/hr 04/04/18 21:45 21:47 Heparin Infusion - IVPB 1,000 units/hr TITR AURY 20 mls/hr Administration Protocol 1,000 UNITS/HR Home Medications Medication Instructions Recorded Epinephrine [Epipen 2-Manoj] 0.3 mg IJ ASDIR #1 kit 11/22/16 EKG: initially NSR, later with flattened T waves V2, V6, later w/ inverted t waves v3-v5 on sequential EKGs ASSESSMENT AND PLAN: 63 y/o with no significant PMH who presents to the ED c/o new onset R sided chest pain. #Acute chest pain, NSTEMI on Aspirin, lipitor 80mg, LD of Plavix then Plavix 75mg daily , on BB, Cardio for cath in am , will tx the patient as per cardio. On hep gtt; follow PTT, f/ u ECHO, trend trops. 0.59>1.03> 2.42>2.88 # keep Mg>2, K>4 tele monitoring, serial EKGs DVT Px: hep gtt #Dispo tele monitoring for cath in am as per cardio
[2018-04-06 07:57] LABS: BASO % 0.2 % (0-2.0); HEMATOCRIT 40.1 % (35.4-49); HEMOGLOBIN 13.2 GM/dL (11.7-16.9); LYMPH % 31.9 % (8-40); MCH 27.7 pg (25.7-33.7); MCHC 32.9 g/dl (32.0-35.9); MEAN CELL VOLUME 84.1 fl (80-96); MEAN PLT VOLUME 7.9 fl (7.5-11.1); MONO % 7.3 % (3.8-10.2); NEUT % 57.6 % (42.8-82.8); PLATELET COUNT 233 K/MM3 (134-434); RBC 4.76 M/mm3 (4.00-5.60); WHITE BLOOD COUNT 8.4 K/mm3 (4.0-10.0)
[2018-04-06 08:24] LABS: ANION GAP 8 MMOL/L (8-16); BLOOD UREA NITROGEN 12 mg/dL (7-18); CALCIUM 8.4 mg/dL (8.5-10.1); CHLORIDE 103 mmol/L (98-107); CO2 28 mmol/L (21-32); CREATININE 1.1 mg/dL (0.55-1.3); GLUCOSE,RANDOM 111 mg/dL (74-106); PHOSPHOROUS 4.3 mg/dL (2.5-4.9); POTASSIUM 3.7 mmol/L (3.5-5.1); SODIUM 138 mmol/L (136-145)
[2018-04-06] MEDS ORDERED: PT OWN MED DRAWER 7, Y5N ONE (08:44)
[2018-04-06] MEDS: ATORVASTATIN CA 80 MG TABLET (FP) PO SCH (09:23)
[2018-04-06] MEDS: HEPARIN INFUSION - 25,000 UNITS/500 ML INFUS.BAG IVPB SCH (09:24)
[2018-04-06] MEDS ORDERED: ASPIRIN COATED 81 MG TABLET.EC PO SCH (10:00)
[2018-04-06] MEDS ORDERED: ASPIRIN 81 MG CHEWABLE TABLETS PO SCH (10:00)
[2018-04-06] MEDS ORDERED: CLOPIDOGREL BISULFATE 75 MG TABLET (FP) PO SCH (10:00)
--- NOTE | 2018-04-06 10:18 | PN ---
Progress Note (short form) - Note Progress Note: cc: chest pain s: chest pain resolved, feels better. no dyspnea, dizziness, lightheadedness, palpitations pe: Vital Signs Period Temp Pulse Resp BP Sys/Mares Pulse Ox Last 24 Hr 97.8 F-98.4 F 64-81 18-20 128-151/64-91 96-98 nad no jvd rrr s1s2 no mrg cta bl nl eff aaox3 no le e/c/c abd nt nd pos bs no jaundice diaphoresis pos dp pt no carotid bruits ecgs reviewed: dynamic nonspec tw changes, normalized on most recent ecg, no st changes. Current ecg unremarkable cta chest: no pe, no chf echo 03/2018 LV function nl, RV nl size/function, mlid MR tele: sinus, PVCs a/p: 63 m no sig pmhx here with cp. cp, nstemi: -location of sxs on right side chest atypical but cta shows no PE and trops slowly trending upwards,peak 2.88, c/w NSTEMI -cont hep gtt, asa, plavix, statin -echo nl EF - monitoring on tele - patient now agreeable to cath, discussed with arson investigator interventionalist Dr. Pearl at [place], accepted for transfer for cath.
--- NOTE | 2018-04-06 15:01 | PN ---
Progress Note (short form) - Note Progress Note: Vital Signs Temperature 98.2 F 04/06/18 10:00 Pulse Rate 76 04/06/18 10:00 Respiratory Rate 20 04/06/18 10:00 Blood Pressure 126/74 04/06/18 10:00 O2 Sat by Pulse Oximetry (%) 96 04/06/18 10:00 GENERAL: Pleasant. resting in bed. awake, alert, and fully oriented, in no acute distress. HEAD: Normal with no signs of trauma. EYES: Pupils equal, round and reactive to light, extraocular movements intact, sclera anicteric, conjunctiva clear. EARS, NOSE, THROAT: Ears normal, oropharynx clear without exudates. Moist mucous membranes. NECK: Normal range of motion, supple CHEST: without reproducible chest pain LUNGS: Breath sounds equal, clear to auscultation bilaterally. No wheezes, and no crackles. No accessory muscle use. HEART: Regular rate and rhythm, normal S1 and S2 without murmur, rub or gallop. ABDOMEN: Soft, obese, nontender, not distended, normoactive bowel sounds EXTREMITIES: 2+ pt pulses, warm, well-perfused. No calf tenderness. No peripheral edema. NEUROLOGICAL: Cranial nerves II-XII intact. PSYCHIATRIC: Cooperative. SKIN: Warm, dry. CBCD WBC 8.4 K/mm3 (4.0-10.0) 04/06/18 06:30 RBC 4.76 M/mm3 (4.00-5.60) 04/06/18 06:30 Hgb 13.2 GM/dL (11.7-16.9) 04/06/18 06:30 Hct 40.1 % (35.4-49) 04/06/18 06:30 MCV 84.1 fl (80-96) 04/06/18 06:30 MCHC 32.9 g/dl (32.0-35.9) 04/06/18 06:30 RDW 13.0 % (11.9-15.9) 04/06/18 06:30 Plt Count 233 K/MM3 (134-434) 04/06/18 06:30 MPV 7.9 fl (7.5-11.1) 04/06/18 06:30 CMP Sodium 138 mmol/L (136-145) 04/06/18 06:30 Potassium 3.7 mmol/L (3.5-5.1) 04/06/18 06:30 Chloride 103 mmol/L (98-107) 04/06/18 06:30 Carbon Dioxide 28 mmol/L (21-32) 04/06/18 06:30 Anion Gap 8 MMOL/L (8-16) 04/06/18 06:30 BUN 12 mg/dL (7-18) 04/06/18 06:30 Creatinine 1.1 mg/dL (0.55-1.3) 04/06/18 06:30 Creat Clearance w eGFR > 60 (>60) 04/06/18 06:30 Random Glucose 111 mg/dL (74-106) H 04/06/18 06:30 Calcium 8.4 mg/dL (8.5-10.1) L 04/06/18 06:30 Total Bilirubin 0.3 mg/dL (0.2-1) 04/04/18 14:30 AST 19 U/L (15-37) 04/04/18 14:30 ALT 23 U/L (13-61) 04/04/18 14:30 Alkaline Phosphatase 93 U/L (45-117) 04/04/18 14:30 Total Protein 7.3 g/dl (6.4-8.2) 04/04/18 14:30 Albumin 3.6 g/dl (3.4-5.0) 04/04/18 14:30 CARDIAC ENZYMES Creatine Kinase 234 IU/L (26-308) 04/06/18 06:30 Troponin I 1.72 ng/ml (0.00-0.05) H* 04/06/18 06:30 Current Medications Generic Name Dose Route Start Last Admin Trade Name Freq PRN Reason Stop Dose Admin Aspirin 81 mg 04/06/18 10:00 04/06/18 09:23 Asa - PO 81 mg DAILY AURY Administration Atorvastatin Calcium 80 mg 04/05/18 10:00 04/06/18 09:23 Lipitor - PO 80 mg DAILY AURY Administration Clopidogrel Bisulfate 75 mg 04/06/18 10:00 04/06/18 09:23 Plavix - PO 75 mg DAILY AURY Administration Heparin Sodium (Porcine) 1,000 unit 04/05/18 06:02 04/05/18 06:04 Heparin - IVPUSH 1,000 unit PRN PRN Administration Heparin Heparin Sodium (Porcine) 5,000 unit 04/05/18 06:02 04/06/18 09:24 Heparin - IVPUSH 5,000 unit PRN PRN Administration Heparin Heparin Sodium/Dextrose 25,000 units in 500 mls @ 20 mls/hr 04/04/18 21:45 09:24 Heparin Infusion - IVPB 1,150 units/hr TITR AURY 23 mls/hr Administration Protocol 1,000 UNITS/HR Home Medications Medication Instructions Recorded Epinephrine [Epipen 2-Manoj] 0.3 mg IJ ASDIR #1 kit 11/22/16 EKG: initially NSR, later with flattened T waves V2, V6, later w/ inverted t waves v3-v5 on sequential EKGs ASSESSMENT AND PLAN: 63 y/o with no significant PMH who presents to the ED c/o new onset R sided chest pain. #Acute chest pain, NSTEMI on Aspirin, lipitor 80mg, LD of Plavix then Plavix 75mg daily , on BB, Cardio for cath this weekend. On hep gtt; follow PTT, f/u ECHO, trend trops. 0.59> 1.03> 2.42>2.88 # keep Mg>2, K>4 tele monitoring, serial EKGs DVT Px: hep gtt #Dispo in tele monitoring for cath this weekend as per cardio
--- NOTE | 2018-04-06 15:03 | DS ---
Physical Exam: SUBJECTIVE: Patient seen and examined patient is being transferred to [facility] as per today. OBJECTIVE: Vital Signs Temperature 98.2 F 04/06/18 10:00 Pulse Rate 76 04/06/18 10:00 Respiratory Rate 20 04/06/18 10:00 Blood Pressure 126/74 04/06/18 10:00 O2 Sat by Pulse Oximetry (%) 96 04/06/18 10:00 PHYSICAL EXAM GENERAL: The patient is awake, alert, and fully oriented, in no acute distress. HEAD: Normal with no signs of trauma. EYES: PERRL, extraocular movements intact, sclera anicteric, conjunctiva clear. ENT: Ears normal, oropharynx clear without exudates, moist mucous membranes. NECK: Trachea midline, full range of motion, supple. LUNGS: Breath sounds equal, clear to auscultation bilaterally, no wheezes, no crackles, no accessory muscle use. HEART: Regular rate and rhythm, S1, S2 without murmur, rub or gallop. ABDOMEN: Soft, nontender, nondistended, normoactive bowel sounds, no guarding, no rebound, no hepatosplenomegaly, no masses. EXTREMITIES: 2+ pulses, warm, well-perfused, no edema. NEUROLOGICAL: Cranial nerves II through XII grossly intact. Normal speech, gait not observed. PSYCH: Normal mood, normal affect. SKIN: Warm, dry, normal turgor, no rashes or lesions noted. LABS Laboratory Results - last 24 hr 04/05/18 04/06/18 04/06/18 17:30 06:30 06:30 WBC 8.4 RBC 4.76 Hgb 13.2 Hct 40.1 MCV 84.1 MCH 27.7 MCHC 32.9 RDW 13.0 Plt Count 233 MPV 7.9 Absolute Neuts (auto) 4.8 Neutrophils % 57.6 Lymphocytes % 31.9 D Monocytes % 7.3 Eosinophils % 3.0 Basophils % 0.2 Nucleated RBC % 0 PTT (Actin FS) Sodium 138 Potassium 3.7 Chloride 103 Carbon Dioxide 28 Anion Gap 8 BUN 12 Creatinine 1.1 Creat Clearance w eGFR > 60 Random Glucose 111 H Calcium 8.4 L Phosphorus 4.3 Creatine Kinase 288 234 Creatine Kinase Index 3.0 2.2 CK-MB (CK-2) 8.9 H 5.3 H Troponin I 1.98 H* 1.72 H* 04/06/18 06:30 WBC RBC Hgb Hct MCV MCH MCHC RDW Plt Count MPV Absolute Neuts (auto) Neutrophils % Lymphocytes % Monocytes % Eosinophils % Basophils % Nucleated RBC % PTT (Actin FS) 34.3 Sodium Potassium Chloride Carbon Dioxide Anion Gap BUN Creatinine Creat Clearance w eGFR Random Glucose Calcium Phosphorus Creatine Kinase Creatine Kinase Index CK-MB (CK-2) Troponin I EKG: initially NSR, later with flattened T waves V2, V6, later w/ inverted t waves v3-v5 on sequential EKGs HOSPITAL COURSE: Date of Admission:04/04/18 Date of Discharge: 04/06/18 63 y/o with no significant PMH who presents to the ED c/o new onset R sided chest pain. # NSTEMI on Aspirin, lipitor 80mg, heparin, Plavix 75mg daily , on BB, continue for cath in am , continue On hep gtt; trend trops. 0.59>1.03> 2.42>2.88 # keep Mg>2, K>4 tele monitoring, serial EKGs DVT Px: hep gtt for cath in am as per Dr. Villatoro ;cardio Minutes to complete discharge: 35 Discharge Summary Reason For Visit: Chest Pain Current Active Problems Chest pain (Acute) Condition: Stable - Instructions Disposition: TRANSFER ACUTE CARE/OTHER HOSP - Home Medications Comprehensive Discharge Medication List: Ambulatory Orders Epinephrine [Epipen 2-Manoj] 0.3 mg IJ ASDIR #1 kit 11/22/16 This patient is new to me today: No Emergency Visit: Yes ED Registration Date: 04/04/18 Care time: The patient presented to the Emergency Department on the above date and was hospitalized for further evaluation of their emergent condition. Critical Care patient: No - Discharge Referral Referred to [facility] Med P.C[facility] No
[2018-04-06 15:21] VITALS: BP 146/69; PULSE 77; TEMP 97.8
--- NOTE | 2018-04-06 15:49 | EKG ---
Test Reason : Blood Pressure : / mmHG Vent. Rate : 075 BPM Atrial Rate : 075 BPM P-R Int : 200 ms QRS Dur : 082 ms QT Int : 402 ms P-R-T Axes : 063 034 135 degrees QTc Int : 448 ms NORMAL SINUS RHYTHM T WAVE ABNORMALITY, CONSIDER LATERAL ISCHEMIA ABNORMAL ECG WHEN COMPARED WITH ECG OF 05-APR-2018 11:06, PREMATURE ATRIAL COMPLEXES ARE NO LONGER PRESENT NONSPECIFIC T WAVE ABNORMALITY NOW EVIDENT IN INFERIOR LEADS Confirmed by NATIVIDAD READ, HAZEL ([id number]) on 04/06/2018 3:49:20 PM Referred By: Confirmed By:HAZEL HENSON MD
--- NOTE | 2018-06-03 10:35 | EKG ---
Test Reason : Blood Pressure : / mmHG Vent. Rate : 079 BPM Atrial Rate : 079 BPM P-R Int : 192 ms QRS Dur : 080 ms QT Int : 352 ms P-R-T Axes : 062 036 070 degrees QTc Int : 403 ms NORMAL SINUS RHYTHM NORMAL ECG WHEN COMPARED WITH ECG OF 04-APR-2018 15:34, NONSPECIFIC T WAVE ABNORMALITY, IMPROVED IN ANTEROLATERAL LEADS Confirmed by JERICHO MOORE MD ([id number]) on 06/03/2018 10:35:17 AM Referred By: Confirmed By:JERICHO MOORE MD
--- NOTE | 2018-06-03 10:35 | EKG ---
Test Reason : Blood Pressure : / mmHG Vent. Rate : 085 BPM Atrial Rate : 085 BPM P-R Int : 176 ms QRS Dur : 076 ms QT Int : 328 ms P-R-T Axes : 069 027 079 degrees QTc Int : 390 ms NORMAL SINUS RHYTHM POSSIBLE LEFT ATRIAL ENLARGEMENT NONSPECIFIC T WAVE ABNORMALITY ABNORMAL ECG WHEN COMPARED WITH ECG OF 04-APR-2018 12:33, T WAVE VARIATION Confirmed by JERICHO MOORE MD ([id number]) on 06/03/2018 10:35:30 AM Referred By: Confirmed By:JERICHO MOORE MD
== END 2018-04-06 16:15 | disposition short-term general hospital (02) | DRG 281 ==
LOC: JER 12:31 → JERBED 20:56 → J4S 04-05 14:04
PROVIDERS: ADMIT Internal Medicine; ATTEND Internal Medicine
DX: I21.4 Non-ST elevation (NSTEMI) myocardial infarction (principal); Z68.41 Body mass index [BMI] 40.0-44.9, adult; E66.9 Obesity, unspecified; Z87.891 Personal history of nicotine dependence
CPT/HCPCS: 36415; 71046-TC-FY; 71275-TC; 80048; 80053; 80061; 82550; 82553; 83036; 83721; 83735; 84100; 84484; 85025; 85610; 85730; 93005; 93010; 93306-TC; 99285-25; J1644

== ENCOUNTER 2018-09-14 09:53 | Inpatient (IN) | payer SELFPAY, OTHER | END 2018-09-18 13:19 | disposition home or self-care (01) | LOC: J7W 09-17 14:02 → JER 09:53 → JERBED 12:11 → J4W 17:42 ==

== ENCOUNTER 2018-10-12 19:59 | Observation (INO) | payer OTHER ==
--- NOTE | 2018-10-12 20:16 | PDOC ---
History of Present Illness - General Chief Complaint: Chest Pain Stated Complaint: CHEST PAIN Time Seen by Provider: 10/12/18 20:15 - History of Present Illness Initial Comments: 10/12/18 20:44 The patient is a 63 year old male with a history of HTN, HLD, CABG (03/2018) who presents for evaluation of chest pain. The patient states that he was carrying boxes up and down stairs today and began experiencing an episode of sharp right sided chest pain with associated shortness of breath. The patient noted several more episodes of sharp right sided chest pain with more persistent shortness of breath over the past 5 hours prompting his presentation to the ED for further evaluation. He notes that the pain is now moving to the left side. He otherwise denies fevers, chills, nausea, vomiting, abdominal pain , or changes with urination or bowel movements. Past History - Past Medical History Allergies/Adverse Reactions: Allergies Allergy/AdvReac Type Severity Reaction Status Date / Time No Known Allergies Allergy Verified 10/12/18 22:53 Home Medications: Ambulatory Orders Atorvastatin Ca [Lipitor] 80 mg PO DAILY tablet 04/06/18 Clopidogrel Bisulfate [Plavix -] 75 mg PO DAILY tablet 04/06/18 Aspirin [Aspirin EC] 81 mg PO DAILY 09/14/18 Furosemide [Lasix] 40 mg PO DAILY 09/14/18 Potassium Chloride [K-Dur -] 10 meq PO DAILY 09/14/18 Aspirin Coated [Ecotrin -] 81 mg PO DAILY #30 tablet.ec 09/18/18 Budesonide/Formeterol Fumarate [SYMBICORT 160/4.5mcg -] 2 puff IH BID #1 inhaler 09/18/18 Metoprolol Tartrate [Lopressor -] 50 mg PO BID #60 tablet 09/18/18 Pantoprazole Sodium [Protonix -] 40 mg PO DAILY #30 tablet.ec 09/18/18 predniSONE [Deltasone -] See Taper PO DAILY #30 tablet 09/18/18 Cardiac Disorders: Yes (CABG 03/2018 (3 vessels)) COPD: No CHF: No HTN: Yes Hypercholesterolemia: Yes - Surgical History Cardiac Surgery: Yes (CABG 03/2018) - Suicide/Smoking/Psychosocial Hx Smoking Status: No Smoking History: Unknown if ever smoked Have you smoked in the past 12 months: No Number of Cigarettes Smoked Daily: 0 If you are a former smoker, when did you quit?: 20 YEARS AGO Information on smoking cessation initiated: No Hx Alcohol Use: No Drug/Substance Use Hx: No Substance Use Type: None Review of Systems - Review of Systems Comments:: 10/12/18 20:46 Constitutional: No fevers, chills, fatigue, malaise HEENT: No Rhinorrhea, nasal congestion, visual changes Cardiovascular: Chest pain. No syncope, palpitations, lightheadedness Respiratory: SOB. No Cough, Hemoptysis, Gastrointestinal: No Abdominal pain, Nausea, Vomiting, Constipation, Diarrhea, Melena Genitourinary: No Dysuria, Frequency, Urgency, Hesitancy, Hematuria, Flank pain Musculoskeletal: No Myalgia, arthralgia Skin: No rashes, itching, bruising, pallor Neurologic: No Headache, Dizziness, Numbness, Weakness, or Tingling Psychiatric: No Hallucinations. No SI or HI *Physical Exam - Vital Signs Last Vital Signs Temp Pulse Resp BP Pulse Ox 99.5 F 80 20 138/73 97 10/12/18 20:03 10/12/18 20:03 10/12/18 20:03 10/12/18 20:03 10/12/18 20:03 - Physical Exam Comments: 10/12/18 20:47 General Appearance: Nourished. No Apparent Distress HEENT: No Pharyngeal Erythema, Tonsillar Exudate, Tonsillar Erythema Neck: No Cervical Lymphadenopathy Respiratory/Chest: Lungs Clear, Normal Breath Sounds. Mild reproducible tenderness to palpation along the left sternal boarder. No Crackles, Rales, Rhonchi, Wheezing Cardiovascular: Regular Rhythm, Regular Rate. No Murmur, Gallops, Rubs Gastrointestinal/Abdominal: Normal Bowel Sounds, Soft. No Guarding, Rebound, Tenderness Musculoskeletal: No CVA Tenderness Extremity: Normal Capillary Refill Integumentary: Normal Color, Dry, Warm Neurologic: Fully Oriented, Alert, Normal Mood/Affect, Normal Response, Heart Score/ECG Review - History History: Moderately suspicious - Electrocardiogram EKG: Non specific repolarization disturbance - Age Age: 45-65 - Risk Factors Risk Factors Heart Score: Yes Hx Hypercholesterolemia, Yes Hx Hypertension, Yes Positive family hx of cardiac disease Based on the list above the patient has:: >/=3 risk factors or Hx atherosclerotic disease - Troponin Troponin: </= normal limit - Score Heart Score - Total: 5 #1 ECG reviewed & interpreted by me at: 20:47 10/12/18 20:47 HR 87 NE 172 QRS 82 QTc 435 Normal Sinus Rhythm Nonspecific T wave Abnormalities No Acute ST elevations or Depressions Unchanged from prior on 09/14/18 ED Treatment Course - LABORATORY CBC & Chemistry Diagram: 10/12/18 21:00 10/12/18 21:00 Medical Decision Making - Medical Decision Making 10/12/18 20:49 The patient is a 63 year old male with a history of HTN, HLD, CABG (03/2018) who presents for evaluation of chest pain. Differential includes but is not limited to: ACS, CHF, Arrythmia, Musculoskeletal, Infectious, Metabolic Derangement. Given the patient's history and physical exam, we will obtain a cbc , cmp, troponin, bnp, ekg, chest plain film to evaluate further. We will treat with nitro-paste, aspirin to evaluate further. We will continue to monitor and reassess while here in the ED. 10/12/18 23:39 CBC, cmp, troponin are unremarkable. Chest plain film does not demonstrate an acute process. Given the patient's cardiac history and persistent symptoms here in the ED, he will require admission for further monitoring. We discussed the case with the admitting team who accepted the patient for admission. *DC/Admit/Observation/Transfer Diagnosis at time of Disposition: Chest pain Qualifiers: Chest pain type: unspecified Qualified Code(s): R07.9 - Chest pain, unspecified - Discharge Dispostion Condition at time of disposition: Stable Decision to Admit order: Yes - Referrals - Patient Instructions - Post Discharge Activity
[2018-10-12] MEDS ORDERED: ACETAMINOPHEN 1000 MG/100 ML VIAL (NON FORMULARY) IVPB ONE (20:27)
[2018-10-12] MEDS ORDERED: ACETAMINOPHEN INJECTION 100 ML IVPB ONE (20:39)
[2018-10-12] MEDS ORDERED: ASPIRIN 81 MG CHEWABLE TABLETS PO ONE (20:40)
[2018-10-12] MEDS ORDERED: NITROGLYCERIN 2% OINTMENT - 1GM PACKET TD ONE ×2 (20:41→21:12)
--- NOTE | 2018-10-12 20:47 | PDOC ---
Documentation entered by Dayanna De Jesus SCRIBE, acting as scribe for Ale Howell MD. Ale Howell MD: This documentation has been prepared by the scribe, Dayanna De Jesus SCRIBE, under my direction and personally reviewed by me in its entirety. I confirm that the documentation accurately reflects all work, treatment, procedures, and medical decision making performed by me. Attending Attestation - Resident Resident Name: Anastacio Casillas - ED Attending Attestation I have performed the following: I have examined & evaluated the patient, The case was reviewed & discussed with the resident, I agree w/resident's findings & plan, Exceptions are as noted - HPI HPI: 10/12/18 20:47 The patient is a 63 year old male with a significant past medical history of hypertension, hypercholesterolemia and CABG ( with 3 vessels in Mar 2018) who presents to the emergency department with right sided chest pain since earlier today. The patient describes his chest pain as sharp and intermittent. The patient states that he was lifting and carrying heavy boxes at his daughters home when he had his onset of his right sided chest pain. He states that he experienced 3 additional episodes shortly after, each lasting a few seconds. The patient endorses associated shortness of breath with his symptoms. It is noted that the patient was seen in the ED 09/14/18 for similar symptoms by which he was admitted. On exam the patient states that his chest pain has resolved. He denies any fever, chills, nausea, vomiting, diarrhea, constipation or urinary symptoms. He denies any headache or dizziness. The patient denies any other complaints. - Physicial Exam PE: GENERAL: Awake, alert, and fully oriented, in no acute distress. Obese HEAD: No signs of trauma EYES: PERRLA, EOMI, sclera anicteric, conjunctiva clear ENT: Auricles normal inspection, hearing grossly normal, nares patent, oropharynx clear without exudates. Moist mucosa NECK: Normal ROM, supple, no lymphadenopathy, JVD, or masses LUNGS: Breath sounds equal, clear to auscultation bilaterally. No wheezes, and no crackles HEART: Regular rate and rhythm, normal S1 and S2, no murmurs, rubs or gallops ABDOMEN: Soft, nontender, normoactive bowel sounds. No guarding, no rebound. No masses EXTREMITIES: Normal range of motion, no edema. No clubbing or cyanosis. No cords, erythema, or tenderness NEUROLOGICAL: Cranial nerves II through XII grossly intact. Normal speech, normal gait. Motor and sensation intact SKIN: Warm, Dry, normal turgor, no rashes or lesions noted. - Medical Decision Making 10/12/18 20:43 Pt had another episode of chest pain during my evaluation, localized to L upper chest. Will give nitro paste, as his blood pressure is in 120s/80s, do not want to cause a precipitous drop. Will obtain labs, check troponin, CXR. Will plan for admission in light of his prior history.
[2018-10-12 21:10] LABS: BASO % 0.9 % (0-2.0); EOS % 2.8 % (0-4.5); HEMATOCRIT 40.5 % (35.4-49); HEMOGLOBIN 13.1 GM/dL (11.7-16.9); LYMPH % 17.4 % (8-40); MCH 27.8 pg (25.7-33.7); MCHC 32.4 g/dl (32.0-35.9); MEAN CELL VOLUME 85.6 fl (80-96); MEAN PLT VOLUME 7.3 fl (7.5-11.1); MONO % 11.1 % (3.8-10.2); NEUT % 67.8 % (42.8-82.8); PLATELET COUNT 275 K/MM3 (134-434); RBC 4.73 M/mm3 (4.00-5.60); RDW 14.8 % (11.9-15.9)
[2018-10-12] MEDS ORDERED: ASPIRIN 81 MG CHEWABLE TABLETS ONE (21:11)
[2018-10-12 22:06] LABS: ALBUMIN 3.5 g/dl (3.4-5.0); ALK PHOS 98 U/L (45-117); ANION GAP 8 MMOL/L (8-16); BILIRUBIN,TOTAL 0.2 mg/dL (0.2-1); CALCIUM 8.8 mg/dL (8.5-10.1); CHLORIDE 106 mmol/L (98-107); CO2 26 mmol/L (21-32); CREATININE 1.3 mg/dL (0.55-1.3); GLUCOSE,RANDOM 86 mg/dL (74-106); N-TERMINAL BNP 169.1 pg/ml (5-125); POTASSIUM 4.5 mmol/L (3.5-5.1); SGOT/AST 22 U/L (15-37); SGPT/ALT 31 U/L (13-61); SODIUM 140 mmol/L (136-145)
--- NOTE | 2018-10-13 00:09 | HP ---
Admitting History and Physical - Primary Care Physician PCP: Alysia Santiago - Admission Chief Complaint: Chest pain with sob History of Present Illness: 63 year old male with PMHX of hypertension, hypercholesterolemia, CABG ( with 3 vessels in Mar 2018, arrived to the emergency department with right sided chest pain since this morning (had three episode of sharp pain over span for 3 hours with sob which lead to patient coming in to ED). The patient describes chest pain as sharp and intermittent. Pain started during lifting and carrying heavy boxes at his daughters home. Since at ED per patient pain traveled from right side to left side of the chest, nitroglycerin 2% past applied in ER now chest pain 07/24. Patient was seen in the ED 09/14/18 for similar symptoms by which he was admitted. Patient denies any fever, chills, nausea, vomiting, headache or dizziness. The patient denies any other complaints. History Source: Patient Limitations to Obtaining History: No Limitations - Past Medical History Cardiovascular: Yes: HTN, Hyperlipdemia, Other (CABD 03/2018,) - Past Surgical History Past Surgical History: Yes: CABG - Smoking History Smoking history: Unknown if ever smoked Have you smoked in the past 12 months: No Aproximately how many cigarettes per day: 0 If you are a former smoker, when did you quit?: 20 YEARS AGO - Alcohol/Substance Use Hx Alcohol Use: No History of Substance Use: reports: None - Social History ADL: Independent History of Recent Travel: No Home Medications - Allergies Allergies/Adverse Reactions: Allergies Allergy/AdvReac Type Severity Reaction Status Date / Time No Known Allergies Allergy Verified 10/12/18 22:53 - Home Medications Home Medications: Ambulatory Orders Atorvastatin Ca [Lipitor] 80 mg PO DAILY tablet 04/06/18 Clopidogrel Bisulfate [Plavix -] 75 mg PO DAILY tablet 04/06/18 Aspirin [Aspirin EC] 81 mg PO DAILY 09/14/18 Furosemide [Lasix] 40 mg PO DAILY 09/14/18 Potassium Chloride [K-Dur -] 10 meq PO DAILY 09/14/18 Aspirin Coated [Ecotrin -] 81 mg PO DAILY #30 tablet.ec 09/18/18 Budesonide/Formeterol Fumarate [SYMBICORT 160/4.5mcg -] 2 puff IH BID #1 inhaler 09/18/18 Metoprolol Tartrate [Lopressor -] 50 mg PO BID #60 tablet 09/18/18 Pantoprazole Sodium [Protonix -] 40 mg PO DAILY #30 tablet.ec 09/18/18 predniSONE [Deltasone -] See Taper PO DAILY #30 tablet 09/18/18 Family Disease History - Family Disease History Family Disease History: Diabetes: Father (Alive), Respiratory: Mother ( from respiratory distress COPD ) Review of Systems - Review of Systems Constitutional: reports: No Symptoms Eyes: reports: No Symptoms HENT: reports: No Symptoms Neck: reports: No Symptoms Cardiovascular: reports: Chest Pain Respiratory: reports: SOB, SOB on Exertion Gastrointestinal: reports: No Symptoms Genitourinary: reports: No Symptoms Breasts: reports: No Symptoms Reported Musculoskeletal: reports: No Symptoms Integumentary: reports: No Symptoms Neurological: reports: No Symptoms Endocrine: reports: No Symptoms Hematology/Lymphatic: reports: No Symptoms Psychiatric: reports: No Symptoms Physical Examination Vital Signs: Vital Signs Temperature 98.5 F 10/12/18 20:20 Pulse Rate 78 10/12/18 20:20 Respiratory Rate 20 10/12/18 20:20 Blood Pressure 127/70 10/12/18 20:20 O2 Sat by Pulse Oximetry (%) 97 10/12/18 20:20 Constitutional: Yes: Well Nourished, No Distress, Calm Eyes: Yes: WNL, Conjunctiva Clear, EOM Intact HENT: Yes: WNL, Atraumatic, Normocephalic Neck: Yes: WNL, Supple, Trachea Midline Cardiovascular: Yes: Regular Rate and Rhythm, S1, S2 Respiratory: Yes: WNL, Regular, CTA Bilaterally Gastrointestinal: Yes: WNL, Normal Bowel Sounds, Soft Edema: No Integumentary: Yes: WNL, Other (warm, dry) Neurological: Yes: Alert, Oriented, Cran Nerves II-XII Intact ...Motor Strength: WNL Psychiatric: Yes: Alert, Oriented Labs: CBC, BMP 10/12/18 21:00 10/12/18 21:00 Problem List - Problems (1) Chest pain Assessment/Plan: Chest pain history of HTN/HLD, s/p CABG 03/2019 - admit to tele - 1st tropnin negative, repeat second - cardiology follow up - follow up cbc, bmp Code(s): R07.9 - CHEST PAIN, UNSPECIFIED Qualifiers: Chest pain type: unspecified Qualified Code(s): R07.9 - Chest pain, unspecified (2) Hypertensive heart disease Assessment/Plan: HTN - continue with Metoprolol tartrate 50 mg BID - continue with lasix 40 mg daily - Continue with plavix daily - continue with ASA daily Code(s): I11.9 - HYPERTENSIVE HEART DISEASE WITHOUT HEART FAILURE Qualifiers: Heart failure presence: without heart failure Qualified Code(s): I11.9 - Hypertensive heart disease without heart failure (3) Hyperlipidemia Assessment/Plan: HLD - diet regimen - continue with Lipitor - get lipids profile Code(s): E78.5 - HYPERLIPIDEMIA, UNSPECIFIED Qualifiers: Hyperlipidemia type: pure hypercholesterolemia Qualified Code(s): E78.00 - Pure hypercholesterolemia, unspecified; E78.0 - Pure hypercholesterolemia (4) Reactive airway disease Assessment/Plan: Reactive airway disease - Continue with symbicort 2 puff bid Code(s): J45.909 - UNSPECIFIED ASTHMA, UNCOMPLICATED Qualifiers: Asthma severity: mild Asthma persistence: intermittent Asthma complication type: uncomplicated Qualified Code(s): J45.20 - Mild intermittent asthma, uncomplicated Assessment/Plan 63 year old male admitted with chest pain - admit to telemetry - 1st troponin negative, follow up troponin #2 - follow up cardiology in morning - follow up lipids, cbc, cmp in am HTN/ HLD with s/p CABG 03/2018 - Continue with metoprolol - Continue with ASA, plavix - Continue with lasix - Visit type - Emergency Visit Emergency Visit: Yes ED Registration Date: 10/12/18 Care time: The patient presented to the Emergency Department on the above date and was hospitalized for further evaluation of their emergent condition. - New Patient This patient is new to me today: Yes Date on this admission: 10/13/18 - Critical Care Critical Care patient: No
[2018-10-13] MEDS: FUROSEMIDE 40 MG TABLET (FP) PO SCH (09:12)
[2018-10-13] MEDS: ASPIRIN COATED 81 MG TABLET.EC PO SCH (09:12)
[2018-10-13] MEDS: CLOPIDOGREL BISULFATE 75 MG TABLET (FP) PO SCH (09:12)
[2018-10-13] MEDS: PANTOPRAZOLE 40 MG TABLET (FP) PO SCH (09:12)
[2018-10-13] MEDS ORDERED: NITROGLYCERIN SUBLINGUAL 1/150 0.4 MG TAB ONE (09:40)
[2018-10-13] MEDS: METOPROLOL TARTRATE 50 MG TABLET (FP) PO SCH ×2 (11:16→22:54)
[2018-10-13] MEDS: ATORVASTATIN CA 80 MG TABLET (FP) PO SCH (12:54)
--- NOTE | 2018-10-13 15:53 | PN ---
Progress Note, Physician History of Present Illness: patient seen and examined Chart reviewed Comfortable AK ruled out - Current Medication List Current Medications: Active Medications Aspirin (Ecotrin -) 81 mg PO DAILY [facility] Last Admin: 10/13/18 09:12 Dose: 81 mg Atorvastatin Calcium (Lipitor -) 80 mg PO HS [facility] Last Admin: 10/13/18 12:54 Dose: 80 mg Budesonide/Formoterol Fumarate (Symbicort 160/4.5mcg -) 2 puff IH BID [facility] Clopidogrel Bisulfate (Plavix -) 75 mg PO DAILY [facility] Last Admin: 10/13/18 09:12 Dose: 75 mg Furosemide (Lasix -) 40 mg PO DAILY [facility] Last Admin: 10/13/18 09:12 Dose: 40 mg Metoprolol Tartrate (Lopressor -) 50 mg PO BID [facility] Last Admin: 10/13/18 11:16 Dose: 50 mg Pantoprazole Sodium (Protonix -) 40 mg PO DAILY [facility] Last Admin: 10/13/18 09:12 Dose: 40 mg - Objective Vital Signs: Vital Signs Temperature 98.8 F 10/13/18 09:00 Pulse Rate 89 10/13/18 09:00 Respiratory Rate 20 10/13/18 09:00 Blood Pressure 152/93 10/13/18 09:00 O2 Sat by Pulse Oximetry (%) 99 10/13/18 09:00 Constitutional: Yes: No Distress, Calm, Obese Eyes: Yes: Conjunctiva Clear Neck: Yes: Supple Cardiovascular: Yes: Regular Rate and Rhythm Respiratory: Yes: CTA Bilaterally Gastrointestinal: Yes: Soft, Abdomen, Obese Edema: No Neurological: Yes: Alert Psychiatric: Yes: Alert Labs: CBC, BMP 10/12/18 21:00 10/12/18 21:00 Problem List - Problems (1) Chest pain Code(s): R07.9 - CHEST PAIN, UNSPECIFIED Qualifiers: Chest pain type: unspecified Qualified Code(s): R07.9 - Chest pain, unspecified (2) S/P CABG (coronary artery bypass graft) Code(s): Z95.1 - PRESENCE OF AORTOCORONARY BYPASS GRAFT Assessment/Plan Atypical chest pain Monitor on telemetry AK ruled out Continue current treatment cardiology to follow Stress test ? Await cardiology consult will follow
[2018-10-13] MEDS ORDERED: NITROGLYCERIN SUBLINGUAL 1/150 0.4 MG TAB SL PRN (20:05)
--- NOTE | 2018-10-14 00:15 | EKG ---
Test Reason : Blood Pressure : / mmHG Vent. Rate : 075 BPM Atrial Rate : 075 BPM P-R Int : 192 ms QRS Dur : 082 ms QT Int : 384 ms P-R-T Axes : 054 019 064 degrees QTc Int : 428 ms SINUS RHYTHM WITH MARKED SINUS ARRHYTHMIA T WAVE ABNORMALITY, CONSIDER ANTERIOR ISCHEMIA ABNORMAL ECG WHEN COMPARED WITH ECG OF 12-OCT-2018 19:55, NO SIGNIFICANT CHANGE WAS FOUND Confirmed by MD Rory, Romario ([id number]) on 10/14/2018 12:14:46 AM Referred By: ER Confirmed By:Romario Valadez MD
--- NOTE | 2018-10-14 00:22 | EKG ---
Test Reason : Blood Pressure : / mmHG Vent. Rate : 087 BPM Atrial Rate : 087 BPM P-R Int : 172 ms QRS Dur : 082 ms QT Int : 362 ms P-R-T Axes : 063 031 063 degrees QTc Int : 435 ms NORMAL SINUS RHYTHM POSSIBLE LEFT ATRIAL ENLARGEMENT NONSPECIFIC T WAVE ABNORMALITY ABNORMAL ECG WHEN COMPARED WITH ECG OF 14-SEP-2018 09:56, NO SIGNIFICANT CHANGE WAS FOUND Confirmed by MD Rory, Romario ([id number]) on 10/14/2018 12:21:33 AM Referred By: Confirmed By:Romario Valadez MD
[2018-10-14 07:53] LABS: HEMATOCRIT 39.8 % (35.4-49); HEMOGLOBIN 13.1 GM/dL (11.7-16.9); MCH 27.9 pg (25.7-33.7); MCHC 32.9 g/dl (32.0-35.9); MEAN CELL VOLUME 84.7 fl (80-96); MEAN PLT VOLUME 7.9 fl (7.5-11.1); PLATELET COUNT 272 K/MM3 (134-434); RDW 14.6 % (11.9-15.9)
--- NOTE | 2018-10-14 08:22 | CON.CARD ---
Consult Consult Specialty:: Cardiology - History of Present Illness History of Present Illness: The patient is a 63 year old male with a significant past medical history of hypertension, hypercholesterolemia and CABG ( with 3 vessels in Mar 2018) who presents to the emergency department with right sided chest pain since earlier today. The patient describes his chest pain as sharp and intermittent. The patient states that he was lifting and carrying heavy boxes at his daughters home when he had his onset of his right sided chest pain. He states that he experienced 3 additional episodes shortly after, each lasting a few seconds. The patient endorses associated shortness of breath with his symptoms. It is noted that the patient was seen in the ED 09/14/18 for similar symptoms by which he was admitted. On exam the patient states that his chest pain has resolved. He denies any fever, chills, nausea, vomiting, diarrhea, constipation or urinary symptoms. He denies any headache or dizziness. The patient denies any other complaints. PMH NSTEMI 2017 [facility] cardiac cath; CABG [facility] 04/11/18 [facility] OP coronary artery bypass grafting x3 SMITH to LAD SVG to OM and sequential to RDPA Ongoing medical problems hypertension hyperlipidemia CABG [place] morbid obesity - Past Medical History Cardio/Vascular: Yes: HTN, Hyperlipdemia, Other (CABD 03/2018,) Pulmonary: Yes: COPD - Past Surgical History Past Surgical History: Yes: CABG - Alcohol/Substance Use Hx Alcohol Use: No History of Substance Use: reports: None - Smoking History Smoking history: Unknown if ever smoked Have you smoked in the past 12 months: No Aproximately how many cigarettes per day: 0 If you are a former smoker, when did you quit?: 20 YEARS AGO - Social History ADL: Independent History of Recent Travel: No Home Medications - Allergies Allergies/Adverse Reactions: Allergies Allergy/AdvReac Type Severity Reaction Status Date / Time No Known Allergies Allergy Verified 10/12/18 22:53 - Home Medications Home Medications: Ambulatory Orders Atorvastatin Ca [Lipitor] 80 mg PO DAILY tablet 04/06/18 Clopidogrel Bisulfate [Plavix -] 75 mg PO DAILY tablet 04/06/18 Aspirin [Aspirin EC] 81 mg PO DAILY 09/14/18 Furosemide [Lasix] 40 mg PO DAILY 09/14/18 Potassium Chloride [K-Dur -] 10 meq PO DAILY 09/14/18 Aspirin Coated [Ecotrin -] 81 mg PO DAILY #30 tablet.ec 09/18/18 Budesonide/Formeterol Fumarate [SYMBICORT 160/4.5mcg -] 2 puff IH BID #1 inhaler 09/18/18 Metoprolol Tartrate [Lopressor -] 50 mg PO BID #60 tablet 09/18/18 Pantoprazole Sodium [Protonix -] 40 mg PO DAILY #30 tablet.ec 09/18/18 predniSONE [Deltasone -] See Taper PO DAILY #30 tablet 09/18/18 Family Disease History - Family Disease History Family Disease History: Diabetes: Father (Alive), Respiratory: Mother ( from respiratory distress COPD ) Review of Systems - Review of Systems Constitutional: reports: No Symptoms Eyes: reports: No Symptoms HENT: reports: No Symptoms Neck: reports: No Symptoms Cardiovascular: reports: Chest Pain Gastrointestinal: reports: No Symptoms Genitourinary: reports: No Symptoms Breasts: reports: No Symptoms Reported Musculoskeletal: reports: No Symptoms Integumentary: reports: No Symptoms Neurological: reports: No Symptoms Endocrine: reports: No Symptoms Hematology/Lymphatic: reports: No Symptoms Psychiatric: reports: No Symptoms Vital Signs: Vital Signs Temperature 97.8 F 10/14/18 06:00 Pulse Rate 78 10/14/18 06:00 Respiratory Rate 20 10/14/18 06:00 Blood Pressure 146/88 10/14/18 06:00 O2 Sat by Pulse Oximetry (%) 99 10/13/18 20:51 Constitutional: Yes: Well Nourished, No Distress, Calm Eyes: Yes: WNL, Conjunctiva Clear, EOM Intact HENT: Yes: WNL, Atraumatic, Normocephalic Neck: Yes: WNL, Supple, Trachea Midline Respiratory: Yes: WNL, Regular, CTA Bilaterally Gastrointestinal: Yes: WNL, Normal Bowel Sounds Renal/: Yes: WNL Cardiovascular: Yes: WNL, Regular Rate and Rhythm Heart Sounds: Yes: S1, S2 Musculoskeletal: Yes: WNL Extremities: Yes: WNL Integumentary: Yes: WNL Neurological: Yes: WNL, Alert, Oriented ...Motor Strength: WNL Psychiatric: Yes: WNL, Alert, Oriented - Other Data Labs, Other Data: CBC, BMP 10/14/18 05:30 Troponin, BNP 10/13/18 10:46 Troponin I < 0.02 Troponin, BNP 10/13/18 10:46 Troponin I < 0.02 Imaging - Results Chest X-ray: Image Reviewed (no i/e) EKG: Image Reviewed (sr rep abn ? ant ischemia apcs) Problem List - Problems (1) Chest pain Code(s): R07.9 - CHEST PAIN, UNSPECIFIED Qualifiers: Chest pain type: unspecified Qualified Code(s): R07.9 - Chest pain, unspecified (2) Atypical chest pain Code(s): R07.89 - OTHER CHEST PAIN (3) Cough Code(s): R05 - COUGH (4) Hyperlipidemia Code(s): E78.5 - HYPERLIPIDEMIA, UNSPECIFIED Qualifiers: Hyperlipidemia type: pure hypercholesterolemia Qualified Code(s): E78.00 - Pure hypercholesterolemia, unspecified; E78.0 - Pure hypercholesterolemia (5) Hypertensive heart disease Code(s): I11.9 - HYPERTENSIVE HEART DISEASE WITHOUT HEART FAILURE Qualifiers: Heart failure presence: without heart failure Qualified Code(s): I11.9 - Hypertensive heart disease without heart failure (6) Reactive airway disease Code(s): J45.909 - UNSPECIFIED ASTHMA, UNCOMPLICATED Qualifiers: Asthma severity: mild Asthma persistence: intermittent Asthma complication type: uncomplicated Qualified Code(s): J45.20 - Mild intermittent asthma, uncomplicated (7) S/P CABG (coronary artery bypass graft) Code(s): Z95.1 - PRESENCE OF AORTOCORONARY BYPASS GRAFT (8) Throat tightness Code(s): R68.89 - OTHER GENERAL SYMPTOMS AND SIGNS Assessment/Plan Imp; CPxs r/o mi neg NSTEMI 2017 [facility] cardiac cath; CABG [facility] 04/11/18 [facility] OP coronary artery bypass grafting x3 SMITH to LAD SVG to OM and sequential to RDPA hypertension hyperlipidemia CABG [place] morbid obesity Plan; MIBI ST cont telemetry
[2018-10-14 08:29] LABS: ALBUMIN 3.2 g/dl (3.4-5.0); BILIRUBIN,TOTAL 0.5 mg/dL (0.2-1); BLOOD UREA NITROGEN 12.3 mg/dL (7-18); CALCIUM 8.6 mg/dL (8.5-10.1); CREATININE 1.2 mg/dL (0.55-1.3); POTASSIUM 4.8 mmol/L (3.5-5.1); TOT PROT 6.7 g/dl (6.4-8.2)
[2018-10-14] MEDS ORDERED: METOPROLOL TARTRATE 50 MG TABLET (FP) PO SCH (09:00)
[2018-10-14] MEDS: FUROSEMIDE 40 MG TABLET (FP) PO SCH (11:16)
[2018-10-14] MEDS: PANTOPRAZOLE 40 MG TABLET (FP) PO SCH (11:16)
[2018-10-14] MEDS: CLOPIDOGREL BISULFATE 75 MG TABLET (FP) PO SCH (11:17)
[2018-10-14] MEDS: METOPROLOL TARTRATE 50 MG TABLET (FP) PO SCH ×2 (11:17→22:52)
[2018-10-14] MEDS: ASPIRIN COATED 81 MG TABLET.EC PO SCH (11:17)
[2018-10-14] MEDS: BUDESONIDE/FORMETEROL FUMARATE 160/4.5 mcg INHALER IH SCH ×2 (13:00→22:52)
--- NOTE | 2018-10-14 14:10 | PN ---
Progress Note (short form) - Note Progress Note: pt in for stress test will follow Vital Signs Temp 97.8 F 10/14/18 06:00 Pulse 78 10/14/18 06:00 Resp 20 10/14/18 06:00 BP 146/88 10/14/18 06:00 Pulse Ox 99 10/13/18 20:51 Intake & Output 10/13/18 10/14/18 10/14/18 23:59 11:59 23:59 Intake Total 200 Balance 200 Intake: IVPB 0 Oral 200 Other: Voiding Method Toilet # Unmeasured Voids Void 2 Bowel Movement Yes # Bowel Movements 1 Active Medications Aspirin (Ecotrin -) 81 mg PO DAILY [facility] Last Admin: 10/14/18 11:17 Dose: 81 mg Atorvastatin Calcium (Lipitor -) 80 mg PO HS [facility] Last Admin: 10/13/18 12:54 Dose: 80 mg Budesonide/Formoterol Fumarate (Symbicort 160/4.5mcg -) 2 puff IH BID [facility] Clopidogrel Bisulfate (Plavix -) 75 mg PO DAILY [facility] Last Admin: 10/14/18 11:17 Dose: 75 mg Ezetimibe (Zetia -) 10 mg PO DAILY@1999 [facility] Furosemide (Lasix -) 40 mg PO DAILY [facility] Last Admin: 10/14/18 11:16 Dose: 40 mg Metoprolol Tartrate (Lopressor -) 50 mg PO BID [facility] Last Admin: 10/14/18 11:17 Dose: 50 mg Nitroglycerin (Nitrostat -) 0.4 mg SL Q5M PRN PRN Reason: FOR CHEST PAIN Pantoprazole Sodium (Protonix -) 40 mg PO DAILY [facility] Last Admin: 10/14/18 11:16 Dose: 40 mg CBC, BMP 10/14/18 05:30 10/14/18 05:30 Problem List - Problems (1) Chest pain Code(s): R07.9 - CHEST PAIN, UNSPECIFIED Qualifiers: Chest pain type: unspecified Qualified Code(s): R07.9 - Chest pain, unspecified (2) S/P CABG (coronary artery bypass graft) Code(s): Z95.1 - PRESENCE OF AORTOCORONARY BYPASS GRAFT
[2018-10-14] MEDS ORDERED: REGADENOSON 0.4 MG/5 ML PRE-FILLED SYRINGE IVPUSH ONE ×3 (14:45→15:45)
[2018-10-14] MEDS ORDERED: EZETIMIBE 10 MG TABLET (FP) PO SCH (20:00)
[2018-10-14] MEDS: ATORVASTATIN CA 80 MG TABLET (FP) PO SCH (22:51)
[2018-10-15] MEDS: CLOPIDOGREL BISULFATE 75 MG TABLET (FP) PO SCH (10:52)
[2018-10-15] MEDS: BUDESONIDE/FORMETEROL FUMARATE 160/4.5 mcg INHALER IH SCH (10:52)
[2018-10-15] MEDS: PANTOPRAZOLE 40 MG TABLET (FP) PO SCH (10:52)
[2018-10-15] MEDS: FUROSEMIDE 40 MG TABLET (FP) PO SCH (10:52)
[2018-10-15] MEDS: METOPROLOL TARTRATE 50 MG TABLET (FP) PO SCH (10:52)
[2018-10-15] MEDS: ASPIRIN COATED 81 MG TABLET.EC PO SCH (10:52)
[2018-10-15 11:44] VITALS: BP 131/61; PULSE 68; TEMP 98.3
--- NOTE | 2018-10-15 12:12 | PN ---
Progress Note, Physician History of Present Illness: The patient is a 63 year old male with a significant past medical history of hypertension, hypercholesterolemia and CABG ( with 3 vessels in Mar 2018) who presents to the emergency department with right sided chest pain since earlier today. The patient describes his chest pain as sharp and intermittent. The patient states that he was lifting and carrying heavy boxes at his daughters home when he had his onset of his right sided chest pain. He states that he experienced 3 additional episodes shortly after, each lasting a few seconds. The patient endorses associated shortness of breath with his symptoms. It is noted that the patient was seen in the ED 09/14/18 for similar symptoms by which he was admitted. On exam the patient states that his chest pain has resolved. He denies any fever, chills, nausea, vomiting, diarrhea, constipation or urinary symptoms. He denies any headache or dizziness. The patient denies any other complaints. PMH NSTEMI 2017 [facility] cardiac cath; CABG [facility] 04/11/18 [facility] OP coronary artery bypass grafting x3 SMITH to LAD SVG to OM and sequential to RDPA Ongoing medical problems hypertension hyperlipidemia CABG [place] morbid [place] - Current Medication List Current Medications: Active Medications Aspirin (Ecotrin -) 81 mg PO DAILY [facility] Last Admin: 10/15/18 10:52 Dose: 81 mg Atorvastatin Calcium (Lipitor -) 80 mg PO HS [facility] Last Admin: 10/14/18 22:51 Dose: 80 mg Budesonide/Formoterol Fumarate (Symbicort 160/4.5mcg -) 2 puff IH BID [facility] Last Admin: 10/15/18 10:52 Dose: 2 puff Clopidogrel Bisulfate (Plavix -) 75 mg PO DAILY [facility] Last Admin: 10/15/18 10:52 Dose: 75 mg Ezetimibe (Zetia -) 10 mg PO DAILY@1999 [facility] Last Admin: 10/14/18 22:51 Dose: 10 mg Furosemide (Lasix -) 40 mg PO DAILY [facility] Last Admin: 10/15/18 10:52 Dose: 40 mg Metoprolol Tartrate (Lopressor -) 50 mg PO BID [facility] Last Admin: 10/15/18 10:52 Dose: 50 mg Nitroglycerin (Nitrostat -) 0.4 mg SL Q5M PRN PRN Reason: FOR CHEST PAIN Pantoprazole Sodium (Protonix -) 40 mg PO DAILY [facility] Last Admin: 10/15/18 10:52 Dose: 40 mg - Objective Vital Signs: Vital Signs Temperature 98.3 F 10/15/18 09:00 Pulse Rate 68 10/15/18 09:00 Respiratory Rate 20 10/15/18 09:00 Blood Pressure 131/61 10/15/18 09:00 O2 Sat by Pulse Oximetry (%) 96 10/15/18 09:00 Eyes: Yes: WNL, Conjunctiva Clear, EOM Intact HENT: Yes: WNL, Atraumatic, Normocephalic Neck: Yes: WNL, Supple, Trachea Midline Cardiovascular: Yes: WNL, Regular Rate and Rhythm Respiratory: Yes: WNL, Regular, CTA Bilaterally Gastrointestinal: Yes: WNL, Normal Bowel Sounds Genitourinary: Yes: WNL Musculoskeletal: Yes: WNL Extremities: Yes: WNL Edema: No Integumentary: Yes: WNL Neurological: Yes: WNL, Alert, Oriented ...Motor Strength: WNL Psychiatric: Yes: WNL Labs: CBC, BMP 10/14/18 05:30 10/14/18 05:30 Problem List - Problems (1) Chest pain Code(s): R07.9 - CHEST PAIN, UNSPECIFIED Qualifiers: Chest pain type: unspecified Qualified Code(s): R07.9 - Chest pain, unspecified (2) Atypical chest pain Code(s): R07.89 - OTHER CHEST PAIN (3) Cough Code(s): R05 - COUGH (4) Hyperlipidemia Code(s): E78.5 - HYPERLIPIDEMIA, UNSPECIFIED Qualifiers: Hyperlipidemia type: pure hypercholesterolemia Qualified Code(s): E78.00 - Pure hypercholesterolemia, unspecified; E78.0 - Pure hypercholesterolemia (5) Hypertensive heart disease Code(s): I11.9 - HYPERTENSIVE HEART DISEASE WITHOUT HEART FAILURE Qualifiers: Heart failure presence: without heart failure Qualified Code(s): I11.9 - Hypertensive heart disease without heart failure (6) Reactive airway disease Code(s): J45.909 - UNSPECIFIED ASTHMA, UNCOMPLICATED Qualifiers: Asthma severity: mild Asthma persistence: intermittent Asthma complication type: uncomplicated Qualified Code(s): J45.20 - Mild intermittent asthma, uncomplicated (7) S/P CABG (coronary artery bypass graft) Code(s): Z95.1 - PRESENCE OF AORTOCORONARY BYPASS GRAFT (8) Throat tightness Code(s): R68.89 - OTHER GENERAL SYMPTOMS AND SIGNS Assessment/Plan Imp; CPxs r/o mi neg NSTEMI 2017 [facility] cardiac cath; CABG [facility] 04/11/18 [facility] OP coronary artery bypass grafting x3 SMITH to LAD SVG to OM and sequential to RDPA hypertension hyperlipidemia CABG [place] morbid [place] MIBI [facility] mild anterior and inferior ischemia Plan; c.cath at [facility]. Patient explained importance of the procedure and risk of , mi, explained if no c. cath done. Instructed to proceed to er if CP reoccurs. cont DAPT
--- NOTE | 2018-10-15 12:51 | DS ---
Physical Examination Vital Signs: Vital Signs Temperature 98.3 F 10/15/18 09:00 Pulse Rate 68 10/15/18 09:00 Respiratory Rate 20 10/15/18 09:00 Blood Pressure 131/61 10/15/18 09:00 O2 Sat by Pulse Oximetry (%) 96 10/15/18 09:00 Constitutional: Yes: No Distress, Calm Cardiovascular: Yes: Regular Rate and Rhythm Respiratory: Yes: CTA Bilaterally Gastrointestinal: Yes: Normal Bowel Sounds, Soft, Abdomen, Obese. No: Tenderness Edema: No Labs: CBC, BMP 10/14/18 05:30 10/14/18 05:30 Discharge Summary Reason For Visit: CHEST PAIN Current Active Problems Chest pain (Acute) Hospital Course: Admitted for chest pain he was seen by cardiology Stress test done yesterday showed small zone of mild intensity ischemia-- cardiology advised that pt s stable to be dc home and he will be going [facility] on SundayOctober 18 for cardiac cath-- he should continue his meds If any symptoms of chest pain , dizziness,palpitation, SOB -- advised pt to return to hospital Condition: Stable - Instructions - Home Medications Comprehensive Discharge Medication List: Ambulatory Orders Atorvastatin Ca [Lipitor] 80 mg PO DAILY tablet 04/06/18 Clopidogrel Bisulfate [Plavix -] 75 mg PO DAILY tablet 04/06/18 Aspirin [Aspirin EC] 81 mg PO DAILY 09/14/18 Furosemide [Lasix] 40 mg PO DAILY 09/14/18 Potassium Chloride [K-Dur -] 10 meq PO DAILY 09/14/18 Aspirin Coated [Ecotrin -] 81 mg PO DAILY #30 tablet.ec 09/18/18 Budesonide/Formeterol Fumarate [SYMBICORT 160/4.5mcg -] 2 puff IH BID #1 inhaler 09/18/18 Metoprolol Tartrate [Lopressor -] 50 mg PO BID #60 tablet 09/18/18 Pantoprazole Sodium [Protonix -] 40 mg PO DAILY #30 tablet.ec 09/18/18 Ezetimibe [Zetia -] 10 mg PO DAILY@1999 #30 tablet 10/14/18
[2018-10-15 13:22] LABS: INR 1.12 (0.83-1.09); PROTHROMBIN TIME (PATIENT) 13.2 SEC (9.7-13.0)
[2018-10-16 20:50] VITALS: BMI 43.9
== END 2018-10-15 14:00 | disposition home or self-care (01) ==
LOC: JER 19:59 → JERBED 22:41 → J4W 10-13 00:54
PROVIDERS: ADMIT Internal Medicine; ATTEND Internal Medicine
PROC: 3E033GC Introduction of Other Therapeutic Substance into Peripheral Vein, Percutaneous Approach (ICD-10-PCS; principal; 2018-10-12)
PROC: 3E0F7GC Introduction of Other Therapeutic Substance into Respiratory Tract, Via Natural or Artificial Opening (ICD-10-PCS; 2018-10-12)
DX: R07.89 Other chest pain (principal); I11.9 Hypertensive heart disease without heart failure; E78.5 Hyperlipidemia, unspecified; J45.20 Mild intermittent asthma, uncomplicated; I25.2 Old myocardial infarction; R05 Cough; R09.89 Other specified symptoms and signs involving the circulatory and respiratory systems; E66.01 Morbid (severe) obesity due to excess calories; Z68.42 Body mass index [BMI] 45.0-49.9, adult; Z79.82 Long term (current) use of aspirin; Z95.1 Presence of aortocoronary bypass graft
CPT/HCPCS: 36415; 71045-TC-FY; 78452-TC; 80053; 80061; 82550; 82553; 83721; 83880; 84484; 85025; 85027; 85610; 85730; 93005; 93010; 93017; 94640; 96374; 99283-25; A9502; G0378; J2785

== ENCOUNTER 2021-02-01 05:26 | Emergency (ER) | payer MEDICARE, OTHER ==
[2021-02-01 05:39] VITALS: BP 160/79; PULSE 81; TEMP 98.3; BMI 46.1
[2021-02-01] MEDS ORDERED: ASPIRIN 325 MG TABLET PO ONE ×2 (08:14→08:29)
[2021-02-01] MEDS ORDERED: ASPIRIN 81 MG CHEWABLE TABLETS ONE (08:27)
[2021-02-01 09:30] LABS: EOS % 1.8 % (0-4.5); HEMATOCRIT 40.1 % (35.4-49); HEMOGLOBIN 13.9 GM/dL (11.7-16.9); LYMPH % 21.7 % (8-40); MCH 29.1 pg (25.7-33.7); MCHC 34.6 g/dl (32.0-35.9); MEAN PLT VOLUME 7.5 fl (7.5-11.1); MONO % 8.4 % (3.8-10.2); NEUT % 67.1 % (42.8-82.8); PLATELET COUNT 247 10^3/uL (134-434); RBC 4.78 M/mm3 (4.00-5.60); RDW 14.1 % (11.9-15.9); WHITE BLOOD COUNT 11.7 K/mm3 (4.0-10.0)
[2021-02-01 09:33] LABS: EPI CELLS 13 /uL (0-25.1); HYALINE CASTS 2 /uL (0-3.1); PH,URINE 5.5 (5.0-8.0); URINE APPEARANCE CLEAR; URINE BACTERIA 91 /uL (0-1359); URINE BILIRUBIN NEGATIVE (NEGATIVE); URINE COLOR YELLOW; URINE GLUCOSE (UA) NEGATIVE (NEGATIVE); URINE KETONE NEGATIVE (NEGATIVE); URINE LEUK ESTERASE NEGATIVE (NEGATIVE); URINE NITRITE NEGATIVE (NEGATIVE); URINE PROTEIN TRACE (NEGATIVE); URINE RBC 178 /uL (0-23.9); URINE UROBILINOGEN 0.2 mg/dL (0.2-1.0); URINE WBC 55 /uL (0-25.8)
[2021-02-01 09:48] LABS: INR 1.1 (0.83-1.09); PROTHROMBIN TIME (PATIENT) 12.3 SEC (9.7-13.0)
[2021-02-01 09:55] LABS: CHLORIDE 108 mmol/L (98-107); SODIUM 142 mmol/L (136-145)
[2021-02-01 09:57] LABS: ALBUMIN 3.5 g/dl (3.4-5.0); ANION GAP 7 MMOL/L (8-16); BLOOD UREA NITROGEN 16.7 mg/dL (7-18); CALCIUM 8.9 mg/dL (8.5-10.1); CO2 27 mmol/L (21-32); GLUCOSE,RANDOM 112 mg/dL (74-106)
[2021-02-01 09:58] LABS: MAGNESIUM 1.9 mg/dL (1.8-2.4)
[2021-02-01] MEDS ORDERED: NAPROXEN 500 MG TABLET PO ONE (09:58)
[2021-02-01 10:00] LABS: CREATININE 1.2 mg/dL (0.55-1.3); SGOT/AST 17 U/L (15-37); SGPT/ALT 27 U/L (13-61)
[2021-02-01 10:02] LABS: BILIRUBIN,TOTAL 0.2 mg/dL (0.2-1); TOT PROT 7.2 g/dl (6.4-8.2)
[2021-02-01 10:03] LABS: ALK PHOS 102 U/L (45-117)
[2021-02-01] MEDS ORDERED: NAPROXEN 500 MG TABLET ONE (10:26)
== END 2021-02-01 14:38 | disposition home or self-care (01) ==
LOC: JER 05:26
DX: R07.89 Other chest pain (principal); K08.89 Other specified disorders of teeth and supporting structures; M79.605 Pain in left leg
CPT/HCPCS: 36415; 71046-TC-FY; 72100-TC-FY; 73523-TC-FY; 80053; 81003; 82550; 82553; 83735; 84484; 85025; 85610; 87086; 93005; 93010; 99285-25

== ENCOUNTER 2021-06-28 09:36 | Emergency (ER) | payer MEDICARE, OTHER ==
[2021-06-28 09:58] VITALS: BP 126/76; BMI 45.6
[2021-06-28] MEDS ORDERED: KETOROLAC TROMETHAMINE 30 MG/1 ML VIAL IM ONE (11:35)
[2021-06-28] MEDS ORDERED: KETOROLAC TROMETHAMINE 30 MG/1 ML VIAL ONE (11:42)
[2021-06-28 12:33] VITALS: PULSE 86; TEMP 98.2
[2021-06-28] MEDS ORDERED: LIDOCAINE 5% TOPICAL PATCH TP ONE (13:06)
[2021-06-28] MEDS ORDERED: LIDOCAINE 5% TOPICAL PATCH ONE (13:06)
[2021-06-28] MEDS ORDERED: LIDOCAINE PATCH REMOVAL MC SCH (22:00)
== END 2021-06-28 13:10 | disposition home or self-care (01) ==
LOC: JERFT 09:36
PROC: 3E0233Z Introduction of Anti-inflammatory into Muscle, Percutaneous Approach (ICD-10-PCS; principal; 2021-06-28)
DX: M25.562 Pain in left knee (principal)
CPT/HCPCS: 73564-TC-LT-FY; 99284-25

== ENCOUNTER 2022-01-04 17:36 | Emergency (ER) | payer MEDICARE, OTHER ==
[2022-01-04 18:01] VITALS: BP 124/71; PULSE 70; RESP 20; TEMP 98.4; BMI 44.9
[2022-01-04] MEDS ORDERED: ACETAMINOPHEN 1000 MG/100 ML BAG IVPB ONE (20:02)
[2022-01-04] MEDS ORDERED: ACETAMINOPHEN INJECTION 100 ML IVPB ONE (20:11)
[2022-01-04 20:35] LABS: BASO % 0.5 % (0-2.0); EOS % 2.1 % (0-4.5); HEMATOCRIT 40.2 % (35.4-49); HEMOGLOBIN 13.5 GM/dL (11.7-16.9); LYMPH % 19.8 % (8-40); MCHC 33.6 g/dl (32.0-35.9); MEAN CELL VOLUME 83.5 fl (80-96); MEAN PLT VOLUME 7.4 fl (7.5-11.1); NEUT % 70.6 % (42.8-82.8); PLATELET COUNT 316 10^3/uL (134-434); RBC 4.82 M/mm3 (4.00-5.60); RDW 13.7 % (11.9-15.9); WHITE BLOOD COUNT 12.8 K/mm3 (4.0-10.0)
[2022-01-04 20:42] LABS: INR 1.11 (0.83-1.09); PROTHROMBIN TIME (PATIENT) 12.8 SEC (9.7-13.0)
[2022-01-04 20:53] LABS: ALBUMIN 3.6 g/dl (3.4-5.0); CALCIUM 9.1 mg/dL (8.5-10.1)
[2022-01-04 20:56] LABS: CREATININE 1.1 mg/dL (0.55-1.3)
[2022-01-04 20:58] LABS: BILIRUBIN,TOTAL 0.5 mg/dL (0.2-1); TOT PROT 7.6 g/dl (6.4-8.2)
== END 2022-01-05 00:31 | disposition home or self-care (01) ==
LOC: JERFT 17:36 → JER 17:36 → JERFT 01-05 00:31
PROC: 3E033GC Introduction of Other Therapeutic Substance into Peripheral Vein, Percutaneous Approach (ICD-10-PCS; principal; 2022-01-04)
DX: K40.20 Bilateral inguinal hernia, without obstruction or gangrene, not specified as recurrent (principal)
CPT/HCPCS: 36415; 74177-TC; 80053; 85025; 85610; 86850; 86900; 86901; 99285-25; Q9967

== ENCOUNTER 2022-02-13 15:57 | Observation (INO) | payer OTHER ==
[2022-02-13] MEDS ORDERED: ASPIRIN 81 MG CHEWABLE TABLETS PO ONE (17:14)
[2022-02-13] MEDS ORDERED: ACETAMINOPHEN 500 MG TABLET (FP) PO ONE (17:14)
[2022-02-13] MEDS ORDERED: ASPIRIN 325 MG TABLET ONE (17:34)
[2022-02-13] MEDS ORDERED: ACETAMINOPHEN 325 MG TABLET (FP) ONE (17:34)
[2022-02-13 18:04] LABS: BASO % 0.5 % (0-2.0); HEMATOCRIT 38.9 % (35.4-49); HEMOGLOBIN 13.3 GM/dL (11.7-16.9); LYMPH % 13.6 % (8-40); MCHC 34.1 g/dl (32.0-35.9); MEAN CELL VOLUME 84.9 fl (80-96); MEAN PLT VOLUME 7.7 fl (7.5-11.1); MONO % 6.4 % (3.8-10.2); NEUT % 77.5 % (42.8-82.8); PLATELET COUNT 322 10^3/uL (134-434); RBC 4.58 M/mm3 (4.00-5.60); WHITE BLOOD COUNT 12.2 K/mm3 (4.0-10.0)
[2022-02-13 18:20] LABS: BLOOD UREA NITROGEN 13.2 mg/dL (7-18); CALCIUM 9.1 mg/dL (8.5-10.1)
[2022-02-13 18:21] LABS: ALBUMIN 3.7 g/dl (3.4-5.0)
[2022-02-13 18:24] LABS: CREATININE 1.1 mg/dL (0.55-1.3)
[2022-02-13 18:25] LABS: BILIRUBIN,TOTAL 0.7 mg/dL (0.2-1); TOT PROT 7.7 g/dl (6.4-8.2)
[2022-02-13 18:28] LABS: N-TERMINAL BNP 139.2 pg/ml (5-125)
[2022-02-13 19:15] LABS: EPI CELLS 17 /uL (0-25.1); HYALINE CASTS 4 /uL (0-3.1); PH,URINE 5.5 (5.0-8.0); URINE APPEARANCE CLEAR; URINE BACTERIA 28 /uL (0-1359); URINE BILIRUBIN NEGATIVE (NEGATIVE); URINE COLOR YELLOW; URINE GLUCOSE (UA) NEGATIVE (NEGATIVE); URINE KETONE TRACE (NEGATIVE); URINE LEUK ESTERASE 1+ (NEGATIVE); URINE NITRITE NEGATIVE (NEGATIVE); URINE PROTEIN 1+ (NEGATIVE); URINE RBC 193 /uL (0-23.9); URINE WBC 133 /uL (0-25.8)
[2022-02-13] MEDS ORDERED: ACETAMINOPHEN INJECTION 100 ML IVPB ONE (23:29)
[2022-02-13] MEDS: INSULIN SLIDING SCALE (NOVOLOG) 1 VIAL SQ SCH (23:37)
[2022-02-13] MEDS: ACETAMINOPHEN 1000 MG/100 ML BAG IVPB PRN (23:37)
[2022-02-14] MEDS ORDERED: NABUMETONE 500 MG TABLET PO PRN (01:40)
[2022-02-14] MEDS ORDERED: BACLOFEN 10 MG TABLET (FP) PO PRN (01:40)
[2022-02-14 03:19] LABS: LACTIC ACID 2.3 mmol/L (0.4-2.0)
[2022-02-14] MEDS ORDERED: ACETAMINOPHEN INJECTION 100 ML IVPB ONE (03:39)
[2022-02-14] MEDS: ACETAMINOPHEN 1000 MG/100 ML BAG IVPB PRN (05:28)
[2022-02-14] MEDS: SODIUM CHLORIDE 1,000 ML IV SCH (07:26)
[2022-02-14] MEDS: INSULIN SLIDING SCALE (NOVOLOG) 1 VIAL SQ SCH ×4 (07:37→21:50)
[2022-02-14 07:56] LABS: HEMATOCRIT 38.5 % (35.4-49); HEMOGLOBIN 12.6 GM/dL (11.7-16.9); MCH 28.1 pg (25.7-33.7); MCHC 32.8 g/dl (32.0-35.9); MEAN CELL VOLUME 85.7 fl (80-96); PLATELET COUNT 293 10^3/uL (134-434); RBC 4.49 M/mm3 (4.00-5.60); RDW 14.5 % (11.9-15.9)
[2022-02-14 08:09] LABS: CALCIUM 8.8 mg/dL (8.5-10.1); MAGNESIUM 2.1 mg/dL (1.8-2.4)
[2022-02-14 08:10] LABS: ALBUMIN 3.7 g/dl (3.4-5.0); BLOOD UREA NITROGEN 15.9 mg/dL (7-18)
[2022-02-14 08:13] LABS: PHOSPHOROUS 3.4 mg/dL (2.5-4.9)
[2022-02-14 08:14] LABS: BILIRUBIN,TOTAL 0.7 mg/dL (0.2-1); TOT PROT 7.4 g/dl (6.4-8.2)
[2022-02-14] MEDS ORDERED: TAMSULOSIN HCL 0.4 MG CAP PO SCH (08:30)
[2022-02-14] MEDS ORDERED: amLODIPine BESYLATE 5 MG TABLET (FP) PO SCH (10:00)
[2022-02-14] MEDS ORDERED: ENOXAPARIN NA (PORCINE) 40 MG/0.4 ML DISP.SYRIN SQ SCH (10:00)
[2022-02-14] MEDS ORDERED: GABAPENTIN 400 MG CAPSULE PO SCH (10:00)
[2022-02-14] MEDS ORDERED: ASPIRIN COATED 81 MG TABLET.EC PO SCH (10:00)
[2022-02-14 14:36] VITALS: BMI 43.0
[2022-02-14] MEDS ORDERED: ATORVASTATIN CA 80 MG TABLET (FP) PO SCH (22:00)
[2022-02-14] MEDS ORDERED: KETOROLAC TROMETHAMINE 30 MG/1 ML VIAL IM ONE (22:10)
[2022-02-15] MEDS ORDERED: ACETAMINOPHEN 1000 MG/100 ML BAG IVPB ONE (01:39)
[2022-02-15 01:46] VITALS: RESP 20
[2022-02-15] MEDS: INSULIN SLIDING SCALE (NOVOLOG) 1 VIAL SQ SCH (06:10)
[2022-02-15] MEDS: SODIUM CHLORIDE 1,000 ML IV SCH (06:10)
[2022-02-15 06:58] LABS: HEMATOCRIT 37.1 % (35.4-49); HEMOGLOBIN 12.3 GM/dL (11.7-16.9); MCH 27.8 pg (25.7-33.7); MEAN CELL VOLUME 84.2 fl (80-96); MEAN PLT VOLUME 7.6 fl (7.5-11.1); PLATELET COUNT 272 10^3/uL (134-434); RBC 4.41 M/mm3 (4.00-5.60); RDW 14.2 % (11.9-15.9); WHITE BLOOD COUNT 12.1 K/mm3 (4.0-10.0)
[2022-02-15 07:15] LABS: CALCIUM 8.7 mg/dL (8.5-10.1)
[2022-02-15 07:16] LABS: BLOOD UREA NITROGEN 12.9 mg/dL (7-18)
[2022-02-15 07:18] LABS: CREATININE 0.8 mg/dL (0.55-1.3)
[2022-02-15 08:35] VITALS: BP 150/79; PULSE 76; TEMP 98.4
[2022-02-15] MEDS ORDERED: CEFTRIAXONE 1 GM in DEXTROSE 5%-WATER - 50 ML IVPB SCH (10:00)
== END 2022-02-15 11:04 | disposition left against medical advice (07) ==
LOC: JER 15:57 → JERBED 17:14 → J4S 02-14 09:39
PROVIDERS: ADMIT Internal Medicine; ATTEND Internal Medicine
PROC: 3E033NZ Introduction of Analgesics, Hypnotics, Sedatives into Peripheral Vein, Percutaneous Approach (ICD-10-PCS; principal; 2022-02-13)
PROC: 3E023GC Introduction of Other Therapeutic Substance into Muscle, Percutaneous Approach (ICD-10-PCS; 2022-02-13)
PROC: 3E0233Z Introduction of Anti-inflammatory into Muscle, Percutaneous Approach (ICD-10-PCS; 2022-02-13)
PROC: 3E03329 Introduction of Other Anti-infective into Peripheral Vein, Percutaneous Approach (ICD-10-PCS; 2022-02-13)
PROC: 3E033NZ Introduction of Analgesics, Hypnotics, Sedatives into Peripheral Vein, Percutaneous Approach (ICD-10-PCS; 2022-02-13)
DX: I25.10 Atherosclerotic heart disease of native coronary artery without angina pectoris (principal); E11.9 Type 2 diabetes mellitus without complications; I10 Essential (primary) hypertension; N40.0 Benign prostatic hyperplasia without lower urinary tract symptoms; E78.5 Hyperlipidemia, unspecified; M54.59 Other low back pain; Z95.5 Presence of coronary angioplasty implant and graft; Z29.8 Encounter for other specified prophylactic measures; R07.9 Chest pain, unspecified; R91.1 Solitary pulmonary nodule; E66.09 Other obesity due to excess calories; Z68.41 Body mass index [BMI] 40.0-44.9, adult
CPT/HCPCS: 0241U-QW; 36415; 71046-TC-FY; 76870-TC; 80048; 80053; 81003; 83605; 83735; 83880; 84100; 84484; 85025; 85027; 87086; 93005; 93010; 93306-TC; 96365; 96372; 96374; 99285-25; G0378

== ENCOUNTER 2022-07-01 17:16 | Emergency (ER) | payer OTHER ==
[2022-07-01 17:27] VITALS: TEMP 97.6; BMI 27.7
[2022-07-01 18:58] LABS: HEMATOCRIT 28.9 % (35.4-49); HEMOGLOBIN 9.7 GM/dL (11.7-16.9); MCH 28.5 pg (25.7-33.7); MCHC 33.4 g/dl (32.0-35.9); MEAN CELL VOLUME 85.4 fl (80-96); PLATELET COUNT 287 10^3/uL (134-434); RBC 3.38 M/mm3 (4.00-5.60); RDW 16.2 % (11.9-15.9); WHITE BLOOD COUNT 10.8 K/mm3 (4.0-10.0)
[2022-07-01 19:19] LABS: ALBUMIN 2.8 g/dl (3.4-5.0); BLOOD UREA NITROGEN 13.8 mg/dL (7-18); CALCIUM 8.9 mg/dL (8.5-10.1)
[2022-07-01 19:20] LABS: MAGNESIUM 1.8 mg/dL (1.8-2.4)
[2022-07-01 19:22] LABS: PHOSPHOROUS 3.6 mg/dL (2.5-4.9)
[2022-07-01 19:24] LABS: BILIRUBIN,TOTAL 0.4 mg/dL (0.2-1); TOT PROT 6.4 g/dl (6.4-8.2)
[2022-07-01] MEDS ORDERED: LACTATED RINGERS SOLUTION 1,000 ML/1,000 ML INFUS.BAG IV SCH (19:45)
[2022-07-01] MEDS ORDERED: BISACODYL 5 MG TABLET.DR (FP) PO ONE (21:19)
[2022-07-01] MEDS ORDERED: DOCUSATE SODIUM 100 MG CAPSULE (FP) PO ONE ×2 (21:19→21:30)
[2022-07-01] MEDS ORDERED: MINERAL OIL ENEMA 133 ML ENEMA PR ONE (21:20)
[2022-07-01] MEDS ORDERED: HYDROmorphone HCL 2 MG TABLET PO PRN (21:21)
[2022-07-01] MEDS ORDERED: SENNOSIDES 8.6MG TABLET (FP) PO ONE (21:30)
[2022-07-01] MEDS ORDERED: HYDROmorphone HCL 2 MG TABLET ONE (21:32)
[2022-07-01] MEDS ORDERED: SENNOSIDES 8.8 MG/5 ML SYRUP PO SCH (22:00)
[2022-07-01 23:13] VITALS: BP 139/71; PULSE 65; RESP 18
== END 2022-07-01 23:30 | disposition home or self-care (01) ==
LOC: JER 17:16
DX: K59.00 Constipation, unspecified (principal); N61.0 Mastitis without abscess; Z20.822 Contact with and (suspected) exposure to COVID-19
CPT/HCPCS: 36415; 74177-TC; 80053; 83690; 83735; 84100; 85027; 99285-25; C9803-CS; Q9967; U0003; U0005